=== PATIENT | male | born 1945 | race Caucasian/White ===

== ENCOUNTER 2018-11-08 10:13 | Emergency (ER) | payer OTHER ==
[2018-11-08 10:33] VITALS: O2SAT 97
[2018-11-08] MEDS ORDERED: Sodium Chloride 0.9% 1000 ML 1,000 ML IV STA ×2 (10:47→11:17)
[2018-11-08] MEDS ORDERED: SUBLIMAZE 100 MCG/2 ML IV ONE (10:47)
[2018-11-08] MEDS ORDERED: Zofran 4 MG/2 ML VIAL IV ONE (10:47)
[2018-11-08] MEDS ORDERED: Zofran 4 MG/2 ML VIAL ONE (10:52)
[2018-11-08 10:53] LABS: Hematocrit 55.1 % (42-50); Hemoglobin 19.1 gm/dl (12.5-18.0); Mean Cell Volume 94.3 fl (78-100); Mean Corpuscular Hemoglobin 32.7 pg (26-32); Mean Corpuscular Hgb Concent. 34.7 g/dl (32-36); Mean Platelet Volume 9.2 fl (6-9.5); Platelet Count 233 K/mm3 (150-450); Red Blood Count 5.84 M/mm3 (4.1-5.6); Red Cell Distribution Width 13.3 % (11.5-14.0); White Blood Count 16.7 K/mm3 (4.0-10.5)
[2018-11-08] MEDS ORDERED: SUBLIMAZE 100 MCG/2 ML ONE (10:53)
[2018-11-08] MEDS ORDERED: Sodium Chloride 0.9% 1000 ML 1,000 ML ONE ×2 (10:53→11:50)
--- NOTE | 2018-11-08 10:54 | ERPHSYRPT ---
- History of Present Illness Time Seen by Provider: 11/08/18 10:43 Historian: patient Exam Limitations: no limitations Patient Subjective Stated Complaint: Patient complains of stomach ache and leg cramping for 2 days Triage Nursing Assessment: Patient ambulated into ER with complains of nausia/ vomiting and leg cramping. patinet alert and orientated, carine states he has lost 10 lbs this week Physician History: [id number] white male with history of lumbar fusion, sleep apnea, high blood pressure, degenerative disc disease Patient arrives with complaint of diffuse abdominal pain worse across the abdomen the periumbilical region associated with vomiting and diarrhea symptoms for 2 days. Patient denies any fevers. Past medical history includes back pain,, high blood pressure, sleep apnea, gallbladder, degenerative disc disease, osteoarthritis Past surgical history includes cholecystectomy, neck surgery back surgery shoulder surgery, foot surgery Timing/Duration: day(s) (2 days) Activities at Onset: none Quality: cramping Abdominal Pain Onset Location: generalized abdomen (worse at the level of periumbilical region across the entire abdomen), other Severity of Pain-Max: moderate Severity of Pain-Current: moderate Modifying Factors: Improves With: nothing Associated Symptoms: back, diarrhea, nausea, vomiting, other (leg cramps and pain), No chest pain, No diaphoresis, No fever/chills, No fatigue, No headache, No heartburn, No loss of appetite, No neck pain, No rash, No shortness of breath , No syncope, No testicular pain Previous symptoms: no prior history Allergies/Adverse Reactions: morphine Allergy (Verified 05/11/16 14:25) ketorolac [From Toradol] Adverse Reaction (Intermediate, Verified 11/08/18 10:34 ) unable to urinate Home Medications: Diclofenac Sodium/Misoprostol [Arthrotec 75 mg-200 Mcg Tab] 1 each PO BID [History] Gabapentin [Neurontin] 600 mg PO BID 05/11/16 [History] Omeprazole 20 MG [Prilosec 20 mg] 20 mg PO BID 05/11/16 [History] Oxycodone HCl/Acetaminophen [Percocet 5-325 mg Tablet] 1 each PO Q4-6HPRN PRN [History] Simvastatin 40 mg [Zocor 40 mg] 40 mg PO DAILY 05/11/16 [History] Lisinopril/Hydrochlorothiazide [Lisinopril-Hctz 20-12.5 mg Tab] 1 tab PO BID 06/27 [History] Hx Tetanus, Diphtheria Vaccination/Date Given: Yes Hx Influenza Vaccination/Date Given: Yes Hx Pneumococcal Vaccination/Date Given: Yes Immunizations Up to Date: Yes - Review of Systems Constitutional: No Fever, No Chills Eyes: No Symptoms Ears, Nose, & Throat: No Symptoms Respiratory: No Cough, No Dyspnea Cardiac: No Chest Pain, No Edema, No Syncope Abdominal/Gastrointestinal: Abdominal Pain, Nausea, Vomiting, Diarrhea, No Constipation, No Hematemesis, No Hematochezia, No Melena, No Dysphagia, No Appetite Changes Genitourinary Symptoms: No Dysuria Musculoskeletal: Back Pain, Other (leg cramps and pain), No Neck Pain, No Deformity, No Fall, No Injury, No Joint Redness, No Joint Pain, No Joint Swelling, No Myalgias Skin: No Rash Neurological: No Dizziness, No Focal Weakness, No Sensory Changes Psychological: No Symptoms Endocrine: No Symptoms All Other Systems: Reviewed and Negative - Past Medical History Neurological History: No Pertinent History ENT History: No Pertinent History Cardiac History: Hypertension Respiratory History: Sleep Apnea Endocrine Medical History: No Pertinent History Musculoskeletal History: Degenerative Disk Disease, Osteoarthritis GI Medical History: Gallbladder Disease History: No Pertinent History Psycho-Social History: No Pertinent History Male Reproductive Disorders: No Pertinent History Other Medical History: PT. HAD L4-S1 FUSION ~ 2011 - Past Surgical History Past Surgical History: Yes Neuro Surgical History: No Pertinent History Cardiac: No Pertinent History Respiratory: No Pertinent History Gastrointestinal: Hernia Repair Genitourinary: No Pertinent History Musculoskeletal: Orthopedic Surgery Male Surgical History: No Pertinent History Other Surgical History: gallbladder removed, one neck surgery, three back and three shoulder and one foot surgery - Social History Smoking Status: Former smoker Exposure to second hand smoke: No Drug Use: none Patient Lives Alone: No - Nursing Vital Signs Nursing Vital Signs: Initial Vital Signs Temperature 98.2 F 11/08/18 10:18 Pulse Rate 91 H 11/08/18 10:18 Respiratory Rate 20 11/08/18 10:18 Blood Pressure 133/82 11/08/18 10:18 O2 Sat by Pulse Oximetry 97 11/08/18 10:18 Pain Scale Pain Intensity 10 - Physical Exam General Appearance: mild distress, alert Eye Exam: PERRL/EOMI, eyes nml inspection Ears, Nose, Throat Exam: normal ENT inspection, pharynx normal, moist mucous membranes Neck Exam: normal inspection, non-tender, supple, full range of motion Respiratory Exam: normal breath sounds, lungs clear, No respiratory distress Cardiovascular Exam: regular rate/rhythm, normal heart sounds, capillary refill <2 sec Gastrointestinal/Abdomen Exam: soft, normal bowel sounds, tenderness (diffuse tenderness worse across the entire abdomen at level of umbilicus) Back Exam: normal inspection, normal range of motion, No CVA tenderness, No vertebral tenderness Extremity Exam: normal inspection, normal range of motion, pelvis stable Neurologic Exam: alert, oriented x 3, cooperative, rewriter II-XII nml as tested, normal mood/affect, nml cerebellar function, sensation nml, No motor deficits Skin Exam: normal color, warm, dry SpO2 Interpretation: normal (97%) SpO2: 97 - Course Nursing assessment & vital signs reviewed: Yes - CT Exams Abdomen/Pelvis CT Interpretation: Discussed w/radiologist (CT abdomen and pelvis: Impression 1. New fluid distended small and large bowel loops with fluid leveling, ileus versus enterocolitis. 2. Stable fatty liver, nonobstructing bilateral renal microcalculi, left renal cyst, and lumbar postsurgical changes.) Ordered Tests: Active Orders 24 hr Category Date Time Status IV Insertion STAT Care 11/08/18 10:47 Active ABDOMEN AND PELVIS W/0 CONTRAS [CT] Stat Exams 11/08/18 11:16 Completed AMYLASE Stat Lab 11/08/18 10:30 Completed CBC W DIFF Stat Lab 11/08/18 10:30 Completed CMP Stat Lab 11/08/18 10:30 Completed CULTURE,URINE Stat Lab 11/08/18 12:04 Received LIPASE Stat Lab 11/08/18 10:30 Completed Manual Differential NC Stat Lab 11/08/18 10:30 Completed UA W/RFX UR CULTURE Stat Lab 11/08/18 12:04 Completed Medication Summary Discontinued Medications Generic Name Dose Route Start Last Admin Trade Name Freq PRN Reason Stop Dose Admin Fentanyl Citrate 75 mcg 11/08/18 10:47 11/08/18 10:58 Sublimaze 100 Mcg/2 Ml IV 11/08/18 10:48 75 mcg STAT ONE Administration Fentanyl Citrate Confirm 11/08/18 10:53 Sublimaze 100 Mcg/2 Ml Administered 11/08/18 10:54 Dose 100 mcg .ROUTE .STK-MED ONE Sodium Chloride 1,000 mls @ 999 mls/hr 11/08/18 10:47 11/08/18 12:41 Sodium Chloride 0.9% 1000 Ml IV 11/08/18 11:47 Infused .Q1H1M STA Infusion Sodium Chloride Confirm 11/08/18 10:53 Sodium Chloride 0.9% 1000 Ml Administered 11/08/18 10:54 Dose 1,000 mls @ ud .ROUTE .STK-MED ONE Sodium Chloride 1,000 mls @ 999 mls/hr 11/08/18 11:17 11/08/18 12:25 Sodium Chloride 0.9% 1000 Ml IV 11/08/18 12:17 999 mls/hr .Q1H1M STA Administration Sodium Chloride Confirm 11/08/18 11:50 Sodium Chloride 0.9% 1000 Ml Administered 11/08/18 11:51 Dose 1,000 mls @ ud .ROUTE .STK-MED ONE Ondansetron HCl 4 mg 11/08/18 10:47 11/08/18 10:57 Zofran 4 Mg/2 Ml Vial IV 11/08/18 10:48 4 mg STAT ONE Administration Ondansetron HCl Confirm 11/08/18 10:52 Zofran 4 Mg/2 Ml Vial Administered 11/08/18 10:53 Dose 4 mg .ROUTE .STK-MED ONE Lab/Rad Data: Laboratory Result Diagrams 11/08/18 10:30 11/08/18 10:30 Laboratory Results 11/08/18 11/08/18 11/08/18 Range/Units 12:04 10:30 10:30 WBC 16.7 H (4.0-10.5) K/mm3 RBC 5.84 H (4.1-5.6) M/mm3 Hgb 19.1 H (12.5-18.0) gm/dl Hct 55.1 H (42-50) % MCV 94.3 (78-100) fl MCH 32.7 H (26-32) pg MCHC 34.7 (32-36) g/dl RDW 13.3 (11.5-14.0) % Plt Count 233 (150-450) K/mm3 MPV 9.2 (6-9.5) fl Absolute Neutrophils 14.54 (1.4-6.9) Segmented Neutrophils 87 H (36.-66.) % Lymphocytes (Manual) 4 L (24-44) % Monocytes (Manual) 9 (0.0-12.0) % Platelet Estimate NORMAL (NORMAL) RBC Morphology NORMAL Sodium 140 (137-145) mmol/L Potassium 3.5 (3.5-5.1) mmol/L Chloride 96 L (98-107) mmol/L Carbon Dioxide 24 (22-30) mmol/L Anion Gap 22.9 H (5-15) MEQ/L BUN 32 H (9-20) mg/dL Creatinine 1.40 H (0.66-1.25) mg/dL Estimated GFR 52.9 ML/MIN Glucose 166 H (74-106) mg/dL Calcium 10.1 (8.4-10.2) mg/dL Total Bilirubin 0.60 (0.2-1.3) mg/dL AST 37 (17-59) U/L ALT 44 (0-50) U/L Alkaline Phosphatase 51 (38-126) U/L Serum Total Protein 9.4 H (6.3-8.2) g/dL Albumin 5.3 H (3.5-5.0) g/dL Amylase 73 (30-110) U/L Lipase 33 (23-300) U/L Urine Color YELLOW (YELLOW) Urine Appearance SLIGHTLY CLOUDY (CLEAR) Urine pH 5.0 (5-6) Ur Specific [place] 1.025 (1.005-1.025) Urine Protein 100 (Negative) Urine Ketones TRACE (NEGATIVE) Urine Blood NEGATIVE (0-5) Jabari/ul Urine Nitrite NEGATIVE (NEGATIVE) Urine Bilirubin NEGATIVE (NEGATIVE) Urine Urobilinogen NEGATIVE (0-1) mg/dL Ur Leukocyte Esterase NEGATIVE (NEGATIVE) Urine WBC (Auto) 11-15 (0-5) /HPF Urine RBC (Auto) 3-5 (0-2) /HPF U Hyaline Cast (Auto) 11-25 (0-2) /LPF U Epithel Cells (Auto) FEW (FEW) /HPF Urine Bacteria (Auto) FEW (NEGATIVE) /HPF Urine Mucus (Auto) SLIGHT (NEGATIVE) /HPF Urine Culture Reflexed YES (NO) Urine Glucose NEGATIVE (NEGATIVE) mg/dL - Progress Progress: improved Progress Note: 11/08/18 13:34 Patient feeling better with 2 L of normal saline. CT of the abdomen impression 1. The fluid distended large and small bowel loops with fluid leveling ileus versus enterocolitis 2. Stable fatty liver, nonobstructing bilateral renal might wrote-calculi, left renal cyst, and lumbar postsurgical changes. Patient's white count 16.7 hemoglobin 19.1 hematocrit 55.1 patient's chemistry sodium 140 potassium 3.5 chloride 96 BUN 32 creatinine 1.40 glucose 166 anion gap was elevated at 22.9 Patient does have a UTI on urinalysis. I have offered to discuss the patient's case with his family doctor for possible observation he refuses to do this. Will go ahead and release patient. Will write for Phenergan for nausea. Bactrim DS one orally twice a day. And write for a small amount of Lomotil . - Departure Departure Disposition: Home Clinical Impression: Dehydration Vomiting Qualifiers: Vomiting type: unspecified Vomiting Intractability: non-intractable Nausea presence: without nausea Qualified Code(s): R11.11 - Vomiting without nausea Diarrhea Qualifiers: Diarrhea type: unspecified type Qualified Code(s): R19.7 - Diarrhea, unspecified UTI (urinary tract infection) Qualifiers: Urinary tract infection type: site unspecified Hematuria presence: without hematuria Qualified Code(s): N39.0 - Urinary tract infection, site not specified Condition: Fair Critical Care Time: No Referrals: VENKATA SANCHEZ MD [Primary Care Provider] - Additional Instructions: Return home. Plenty of fluids, clear fluids only 24-48 hours if nausea vomiting or abdominal pain or diarrhea. Bactrim DS one orally twice a day for 10 days. Lomotil one orally 4 times a day as needed for loose stools. Phenergan 25 mg one orally every 4-6 hours as needed for nausea and vomiting Followup with your family DrSylvester if symptoms are worse no better in 24 hours or persist longer than 48-72 hours. Return for acute distress or for severe symptoms. Prescriptions: Promethazine HCl 25 mg [Phenergan 25 mg] 25 mg PO Q4-6HPRN PRN #12 tablet PRN Reason: nausea and vomiting Smz/Tmp Ds Tablet [Bactrim Ds Tablet] 1 tab PO BID #20 tablet
[2018-11-08 11:02] LABS: ALBUMIN 5.3 g/dL (3.5-5.0); ANION GAP 22.9 MEQ/L (5-15); BILIRUBIN,TOTAL 0.6 mg/dL (0.2-1.3); Calcium 10.1 mg/dL (8.4-10.2); Creatinine 1 1.4 mg/dL (0.66-1.25); Potassium 3.5 mmol/L (3.5-5.1); Total Protein 9.4 g/dL (6.3-8.2)
[2018-11-08 11:23] LABS: Neutrophils 87 % (36.-66.); Total Cells Counted 100
[2018-11-08 11:24] LABS: ABSOLUTE NEUTROPHILS 14.54 (1.4-6.9); Lymphocytes 4 % (24-44); Monocyte 9 % (0.0-12.0); Platelet Estimate NORMAL (NORMAL)
[2018-11-08 12:06] VITALS: BP 159/68; PULSE 78
--- NOTE | 2018-11-08 12:10 | XRAY ---
Indication: Abdomen pain, nausea, vomiting, diarrhea. Multiple contiguous axial images obtained through the abdomen and pelvis without contrast as ordered. Comparison: May 22, 2015. Lung bases are essentially clear. Heart is not enlarged. Noncontrasted stomach and bowel loops appear nonobstructed. Normal appendix. Small and large bowel loops now are mildly fluid distended throughout with fluid leveling, ileus versus enterocolitis. Again previous cholecystectomy. No free fluid/air. Stable fatty liver, nonobstructing bilateral renal micro-calculi, left renal cysts, and a few calcified splenic granulomas. Remaining liver, pancreas, spleen, adrenal glands, kidneys, ureters, and bladder appear unremarkable for noncontrast exam. Stable moderate scattered aortoiliac calcifications without AAA. Osseous structures again demonstrates mild degenerative changes throughout the thoracolumbar spine, L4-S1 fusion surgery with intact posterior spinal hardware/intervertebral spacers, and L5-S1 hemilaminectomy. Impression: 1. New fluid distended small and large bowel loops with fluid leveling, ileus versus enterocolitis. 2. Stable fatty liver, nonobstructing bilateral renal micro-calculi, left renal cysts, and lumbar postsurgical changes. CT DI 23.48
[2018-11-08 12:32] LABS: Appearance SLIGHTLY CLOUDY (CLEAR); Bacteria FEW /HPF (NEGATIVE); Bilirubin NEGATIVE (NEGATIVE); Blood NEGATIVE Ery/ul (0-5); Epithelial Cells FEW /HPF (FEW); Glucose NEGATIVE (NEGATIVE); Ketones TRACE (NEGATIVE); Leukocyte Esterase NEGATIVE (NEGATIVE); Mucus SLIGHT /HPF (NEGATIVE); Nitrite NEGATIVE (NEGATIVE); Protein,Urine Dip 100 (Negative); Specific Gravity 1.025 (1.005-1.025); Urobilinogen NEGATIVE mg/dL (0-1)
== END 2018-11-08 13:57 | disposition home or self-care (01) ==
LOC: ED 10:13
DX: E86.0 Dehydration (principal); R11.11 Vomiting without nausea; R19.7 Diarrhea, unspecified; N39.0 Urinary tract infection, site not specified; R25.2 Cramp and spasm; I10 Essential (primary) hypertension; G47.30 Sleep apnea, unspecified; M19.90 Unspecified osteoarthritis, unspecified site; Z79.899 Other long term (current) drug therapy
CPT/HCPCS: 36000; 36415; 74176; 80053; 81001; 82150; 83690; 85025; 87086; 96360; 96361; 96374; 96375; 99284; J2405; J3010

== ENCOUNTER 2018-11-10 09:48 | Observation (INO) | payer OTHER ==
[2018-11-10] MEDS ORDERED: Zofran 4 MG/2 ML VIAL IV PRN (10:46)
[2018-11-10] MEDS ORDERED: Phenergan 25 MG INJ IV PRN (10:46)
[2018-11-10] MEDS ORDERED: Sodium Chloride 0.9% 1000 ML 1,000 ML IV STA (10:46)
[2018-11-10] MEDS: SUBLIMAZE 100 MCG/2 ML IV PRN ×2 (11:01→23:50)
--- NOTE | 2018-11-10 11:04 | PCM.HP ---
History of Present Illness - Chief Complaint Chief Complaint: Diarrhea,Abd Pain History of Present Illness: is a 73 year old male pt of Dr. Ayala with osteoarthritis, chronic back pain (s/p multiple surgeries), hx cholecystectomy and knee surgery, and HTN who was directly admitted today by me for diarrhea and abdominal pain. He has been feeling ill for the past 5d, watery diarrhea, nausea, some chills, decreased po intake and decreased urination. He went to the ER two days ago, was found to have elevated WBC count with left shift, some renal insufficiency, and CT abd/pelvis with ileus vs enteritis. He received 2 bags of IV fluids but did not want to stay to be admitted so was discharged to home on po bactrim and lomotil. He did not tolerate the bactrim well and the lomotil gave him so urinary retention so he stopped it. Continued to have watery diarrhea and nausea over the past 2d. He weighed 224lb 5d ago but is down to 207 lb today. His last episode of vomiting was 3d ago and his last episode of diarrhea was 30min ago. He is complaining of lower abd pain, 7/10 currently, but was "20"/10 early this morning - improved with heating pad and po tylenol. Denies fever. - Review of Systems Constitutional: Chills, Weight Loss, No Fever Abdominal/Gastrointestinal: Abdominal Pain, Nausea, Vomiting, Diarrhea, Appetite Changes Genitourinary Symptoms: Urinary Retention Musculoskeletal: Back Pain (chronic), Joint Pain (chronic) Psychological: No Anxiety, No Depression, No Suicidal Ideations All Other Systems: Reviewed and Negative Medications & Allergies Home Medications: Home Medication List Diclofenac Sodium/Misoprostol [Arthrotec 75 mg-200 Mcg Tab] 1 each PO BID [History Confirmed 05/12/16] Gabapentin [Neurontin] 600 mg PO BID 05/11/16 [History Confirmed 05/12/16] Omeprazole 20 MG [Prilosec 20 mg] 20 mg PO BID 05/11/16 [History Confirmed 05/12] Oxycodone HCl/Acetaminophen [Percocet 5-325 mg Tablet] 1 each PO Q4-6HPRN PRN [History Confirmed 05/12/16] Simvastatin 40 mg [Zocor 40 mg] 40 mg PO DAILY 05/11/16 [History Confirmed 05/12] Lisinopril/Hydrochlorothiazide [Lisinopril-Hctz 20-12.5 mg Tab] 1 tab PO BID 06/27 [History Confirmed 05/24/16] Promethazine HCl 25 mg [Phenergan 25 mg] 25 mg PO Q4-6HPRN PRN #12 tablet 11/08/18 [Rx] Smz/Tmp Ds Tablet [Bactrim Ds Tablet] 1 tab PO BID #20 tablet 11/08/18 [Rx ] Allergies/Adverse Reactions: Allergies Allergy/AdvReac Type Severity Reaction Status Date / Time morphine Allergy Verified 05/11/16 14:25 ketorolac [From Toradol] AdvReac Intermediate unable to Verified 11/08/18 10:34 urinate - Past Medical History Neurological History: No Pertinent History ENT History: No Pertinent History Cardiac History: Hypertension Respiratory History: Sleep Apnea Endocrine Medical History: No Pertinent History Musculoskelatal History: Degenerative Disk Disease, Osteoarthritis GI Medical History: Gallbladder Disease History: No Pertinent History Pyscho-Social History: No Pertinent History Male Reproductive Disorders: No Pertinent History Comment: PT. HAD L4-S1 FUSION ~ 2011 - Past Surgical History Past Surgical History: Yes Neuro Surgical History: No Pertinent History Cardiac History: No Pertinent History Respiratory Surgery: No Pertinent History GI Surgical History: Hernia Repair Genitourinary Surgical Hx: No Pertinent History Musculskeletal Surgical Hx: Orthopedic Surgery Male Surgical History: No Pertinent History Other Surgical History: gallbladder removed, one neck surgery, three back and three shoulder and one foot surgery - Social History Smoking Status: Never smoker Exposure to second hand smoke: No Alcohol: Occasionally Drug Use: none - Physical Exam Vital Signs: Vital Signs - 24 hr Temp Pulse Resp BP Pulse Ox 11/10/18 10:53 97.7 F 93 H 20 127/75 99 11/10/18 10:22 97.7 F 93 H 20 127/75 99 General Appearance: no apparent distress, alert Neurologic Exam: oriented x 3, cooperative Eye Exam: eyes nml inspection Ears, Nose, Throat Exam: moist mucous membranes Respiratory Exam: normal breath sounds, lungs clear, No crackles/rales, No rhonchi, No wheezing Cardiovascular Exam: regular rate/rhythm, normal heart sounds, No murmur Gastrointestinal/Abdomen Exam: soft, tenderness (generalized - worse in lower abd/suprapubic), No normal bowel sounds (hyperactive, high pitched), No distention, No mass, No guarding, No rebound Extremity Exam: normal inspection, No pedal edema, No swelling Skin Exam: normal color, warm, dry, No rash Results - Radiology Impressions Radiology Exams & Impressions: Radiology Procedures Category Date Time Status KUB Routine Exams 11/10/18 Ordered Assessment/Plan (1) Abdominal pain Current Visit: Yes Status: Acute Qualifiers: Abdominal location: generalized Qualified Code(s): R10.84 - Generalized abdominal pain Assessment & Plan: Labs are pending. XR abd pending. Previous CT 2d ago with ileus vs enteritis. He is almost certainly dehydrated. IV fluids going now. STarting him on IV flagyl 500mg q6h and IV levaquin 500mg daily. phenergana nd zofran prn. Try fentanyl for pain. Code(s): R10.9 - UNSPECIFIED ABDOMINAL PAIN (2) Diarrhea Current Visit: No Status: Acute Qualifiers: Diarrhea type: unspecified type Qualified Code(s): R19.7 - Diarrhea, unspecified Assessment & Plan: GI pathogen panel to be collected when he has another episode. Code(s): R19.7 - DIARRHEA, UNSPECIFIED
[2018-11-10 11:26] LABS: Hematocrit 51.1 % (42-50); Hemoglobin 18.3 gm/dl (12.5-18.0); Mean Cell Volume 90.3 fl (78-100); Mean Corpuscular Hemoglobin 32.3 pg (26-32); Mean Corpuscular Hgb Concent. 35.8 g/dl (32-36); Mean Platelet Volume 9.5 fl (6-9.5); Platelet Count 261 K/mm3 (150-450); Red Blood Count 5.66 M/mm3 (4.1-5.6); Red Cell Distribution Width 13.6 % (11.5-14.0); White Blood Count 13.4 K/mm3 (4.0-10.5)
[2018-11-10] MEDS: Levofloxacin 500MG/100ML D5W 500 MG/100 ML BAG IV SCH (11:31)
[2018-11-10] MEDS: FLAGYL 500 MG IVPB 500 MG/100 ML BAG IV SCH ×3 (11:31→23:48)
[2018-11-10 11:36] LABS: ALBUMIN 4.7 g/dL (3.5-5.0); ANION GAP 19.7 MEQ/L (5-15); BILIRUBIN,TOTAL 0.6 mg/dL (0.2-1.3); Calcium 9.7 mg/dL (8.4-10.2); Creatinine 1 1.62 mg/dL (0.66-1.25); Total Protein 8.2 g/dL (6.3-8.2)
[2018-11-10 12:04] LABS: Potassium 2.5 mmol/L (3.5-5.1)
[2018-11-10] MEDS: Lactated Ringers 1,000 ML IV SCH ×2 (12:37→17:53)
[2018-11-10] MEDS: POTASSIUM CHLORIDE 20 mEq IN WATER 100ML 20 MEQ/100 ML BAG IV SCH ×2 (12:38→14:27)
[2018-11-10 13:01] LABS: ATYPICAL LYMPHS 4 %; Lymphocytes 10 % (24-44); Monocyte 6 % (0.0-12.0); Neutrophils 80 % (36.-66.); Platelet Estimate NORMAL (NORMAL); Total Cells Counted 100
[2018-11-10 13:17] LABS: Appearance CLEAR (CLEAR); Bacteria FEW /HPF (NEGATIVE); Bilirubin NEGATIVE (NEGATIVE); Blood NEGATIVE Ery/ul (0-5); Glucose NEGATIVE (NEGATIVE); Ketones TRACE (NEGATIVE); Leukocyte Esterase NEGATIVE (NEGATIVE); Mucus SLIGHT /HPF (NEGATIVE); Nitrite NEGATIVE (NEGATIVE); Protein,Urine Dip 30 (Negative); Specific Gravity 1.017 (1.005-1.025); Urobilinogen NEGATIVE mg/dL (0-1)
[2018-11-10 14:42] LABS: Adenovirus F 40/41 NEGATIVE (NEGATIVE); Astrovirus NEGATIVE (NEGATIVE); C. Difficile Organism NEGATIVE (NEGATIVE); Campylobacter NEGATIVE (NEGATIVE); Cyclospora cayentanensis NEGATIVE (NEGATIVE); Entamoeaba histolytica NEGATIVE (NEGATIVE); Enteroaggregative E.coli NEGATIVE (NEGATIVE); Giardia lamblia NEGATIVE (NEGATIVE); Salmonella NEGATIVE (NEGATIVE); Sapovirus NEGATIVE (NEGATIVE); Shiga-like toxin prod.E.coli NEGATIVE (NEGATIVE); Vibrio NEGATIVE (NEGATIVE)
[2018-11-10 14:44] LABS: Rotavirus A POSITIVE (NEGATIVE)
[2018-11-10 19:37] LABS: MAGNESIUM 1.8 mg/dL (1.6-2.3); Potassium 3.1 mmol/L (3.5-5.1)
[2018-11-10] MEDS ORDERED: POTASSIUM CHLORIDE 20 mEq IN WATER 100ML 20 MEQ/100 ML BAG IV ONE (20:38)
[2018-11-10] MEDS ORDERED: hydroDIURIL 25 MG ONE (21:06)
[2018-11-10] MEDS ORDERED: Zestril 20 MG ONE (21:07)
[2018-11-10] MEDS: NEURONTIN 300 MG PO SCH (21:13)
[2018-11-10] MEDS: Zestril 20 MG PO SCH (21:14)
[2018-11-10] MEDS: hydroDIURIL 25 MG PO SCH (21:14)
--- NOTE | 2018-11-10 21:15 | XRAY ---
Indication: Abdomen pain, nausea, and diarrhea. Multiple contiguous axial images obtained through the abdomen and pelvis without contrast as ordered. Comparison: November 08, 2018. Lung bases remain clear. Heart is not enlarged. Noncontrasted stomach unremarkable. Again fluid distended small and large bowel loops throughout but less than before again with fluid leveling, ileus versus enterocolitis. No free fluid/air. Stable fatty liver, cholecystectomy, nonobstructing bilateral renal micro-calculi, left renal cyst, and enlarged prostate gland. Remaining liver, pancreas, spleen, adrenal glands, kidneys, ureters, and bladder unremarkable for noncontrast exam. Osseous structures again demonstrates degenerative changes throughout the spine, L4-S1 fusion surgery, and L5-S1 laminectomy. Impression: 1. Again fluid distended small and large bowel loops with fluid leveling, ileus versus enterocolitis. 2. Stable fatty liver, nonobstructing renal micro-calculi, left renal cyst, enlarged prostate gland, and lumbar postsurgical changes. Comment: Preliminary interpretation was made by [facility]. No critical discrepancy. CTDI 23.28
--- NOTE | 2018-11-10 21:18 | XRAY ---
Indication: Abdomen pain, nausea, and diarrhea. Comparison: None KUB demonstrates air distended small/large bowel loops without focal distention/obstruction. Previous cholecystectomy and L4-S1 fusion surgery. No free air. Solid organs unremarkable. Impression: Air distended small/large bowel loops further detailed on same-day CT abdomen/pelvis exam. Comment: Preliminary interpretation was made by [facility]. No critical discrepancy.
[2018-11-10] MEDS ORDERED: NON-FORMULARY ITEM (Lisinopril/Hydrochlorothiazide [Lisinopril-Hctz 20-12.5 Mg Tab] 1 TAB) PO SCH (22:00)
[2018-11-11] MEDS: Lactated Ringers 1,000 ML IV SCH (02:42)
[2018-11-11] MEDS: FLAGYL 500 MG IVPB 500 MG/100 ML BAG IV SCH ×2 (06:03→12:10)
[2018-11-11 06:33] LABS: Hematocrit 41.8 % (42-50); Hemoglobin 14.9 gm/dl (12.5-18.0); Mean Cell Volume 90.3 fl (78-100); Mean Corpuscular Hemoglobin 32.2 pg (26-32); Mean Corpuscular Hgb Concent. 35.6 g/dl (32-36); Platelet Count 202 K/mm3 (150-450); Red Blood Count 4.63 M/mm3 (4.1-5.6); Red Cell Distribution Width 13.4 % (11.5-14.0); White Blood Count 9.7 K/mm3 (4.0-10.5)
[2018-11-11 06:45] LABS: ALBUMIN 3.4 g/dL (3.5-5.0); ALKALINE PHOSPHATASE 32 U/L (38-126); ANION GAP 15.6 MEQ/L (5-15); BLOOD UREA NITROGEN 23 mg/dL (9-20); CHLORIDE 103 mmol/L (98-107); Calcium 8.8 mg/dL (8.4-10.2); Carbon Dioxide 23 mmol/L (22-30); Creatinine 1 0.96 mg/dL (0.66-1.25); Glucose 98 mg/dL (74-106); SGOT/AST 28 U/L (17-59); SGPT/ALT 33 U/L (0-50); SODIUM 139 mmol/L (137-145); Total Protein 6.1 g/dL (6.3-8.2)
[2018-11-11 06:49] LABS: Potassium 2.8 mmol/L (3.5-5.1)
[2018-11-11 07:25] VITALS: O2SAT 95
[2018-11-11] MEDS ORDERED: Sodium Chloride 0.9% W/ 20 mEq KCl/LITER 1,000 ML IV SCH (08:00)
[2018-11-11] MEDS: POTASSIUM CHLORIDE 20 mEq IN WATER 100ML 20 MEQ/100 ML BAG IV SCH ×2 (08:26→10:57)
[2018-11-11] MEDS: Zestril 20 MG PO SCH (08:33)
[2018-11-11] MEDS: hydroDIURIL 25 MG PO SCH (08:34)
[2018-11-11] MEDS: NEURONTIN 300 MG PO SCH (08:34)
[2018-11-11 10:16] LABS: BAND 1 % (0.0-2.0); Lymphocytes 18 % (24-44); Monocyte 5 % (0.0-12.0); Neutrophils 76 % (36.-66.); Platelet Estimate NORMAL (NORMAL); Total Cells Counted 100; Toxic Granulation 1+
[2018-11-11] MEDS: Levofloxacin 500MG/100ML D5W 500 MG/100 ML BAG IV SCH (11:13)
[2018-11-11 12:08] VITALS: BP 125/61; PULSE 72
--- NOTE | 2018-11-11 13:50 | PCM.DS ---
Discharge Summary Date of Admission: 11/10/18 10:11 Admitting Physician: VENKATA SANCHEZ Primary Care Provider: VENKATA SANCHEZ Allergies Allergies morphine Allergy (Verified 05/11/16 14:25) ketorolac [From Toradol] Adverse Reaction (Intermediate, Verified 11/08/18 10:34 ) unable to urinate Hospital Summary - Hospital Course Hospital Course: Pt is a 73 yo male pt of Dr. Sanchez with PMHx OA, chronic back pain with failed surgeries, and HTN who was directly admitted by me after 6d of diarrhea and abdominal pain. He did have some chills and vomiting at home as well. KUB with copious amt bowel gas but little gas in distal colon; CT abd/pelvis with no distinct blockage or mass; ileus v enteritis. On admission his eGFR was 44 and his WBC were elevated to 13.4. He was put on IV fluids. Found to have rotavirus. Potassium was low at 2.5. Today he is feeling much better; having some loose stool but not shantal, watery diarrhea. Tolerating po very well. His potassium was again low this morning at 2.8. Repleted with 1 bag of 20mEq potassium; will recheck, if necessary will give 25mEq K[place] liquid and recheck prior to discharge. Plan is to discharge to home on bland diet and antibiotics (flagyl and levaquin) today. He will f/u with Dr. Sanchez regarding possible need for f/u colonoscopy (note sent to Dr. Sanchez) and will see Dr. Sanchez in 1 week. - Vitals & Intake/Output Vital Signs: Vital Signs Temperature 97.8 F 11/11/18 12:00 Pulse Rate 72 11/11/18 12:00 Respiratory Rate 18 11/11/18 12:00 Blood Pressure 125/61 11/11/18 12:00 O2 Sat by Pulse Oximetry 95 11/11/18 12:00 Intake & Output: Intake & Output 11/09/18 11/10/18 11/11/18 11/12/18 11:59 11:59 11:59 11:59 Intake Total 1820 720 Output Total 375 Balance 1445 720 Weight 94.6 kg 97.6 kg - Lab Result Diagrams: 11/11/18 06:25 11/11/18 06:25 Lab Results-Last 24 Hrs: Lab Results-Last 24 Hours 11/10/18 11/10/18 11/11/18 Range/Units 12:45 19:25 01:37 WBC (4.0-10.5) K/mm3 RBC (4.1-5.6) M/mm3 Hgb (12.5-18.0) gm/dl Hct (42-50) % MCV (78-100) fl MCH (26-32) pg MCHC (32-36) g/dl RDW (11.5-14.0) % Plt Count (150-450) K/mm3 MPV (6-9.5) fl Segmented Neutrophils (36.-66.) % Band Neutrophils (0.0-2.0) % Lymphocytes (Manual) (24-44) % Monocytes (Manual) (0.0-12.0) % Toxic Granulation Platelet Estimate (NORMAL) RBC Morphology Sodium (137-145) mmol/L Potassium 3.1 L D 3.0 L (3.5-5.1) mmol/L Chloride (98-107) mmol/L Carbon Dioxide (22-30) mmol/L Anion Gap (5-15) MEQ/L BUN (9-20) mg/dL Creatinine (0.66-1.25) mg/dL Estimated GFR ML/MIN Glucose (74-106) mg/dL Calcium (8.4-10.2) mg/dL Magnesium 1.8 (1.6-2.3) mg/dL Total Bilirubin (0.2-1.3) mg/dL AST (17-59) U/L ALT (0-50) U/L Alkaline Phosphatase (38-126) U/L Serum Total Protein (6.3-8.2) g/dL Albumin (3.5-5.0) g/dL Stl C. cayetanensis PCR NEGATIVE (NEGATIVE) Stl Adenov F 40/41 PCR NEGATIVE (NEGATIVE) Stool Astrovirus (PCR) NEGATIVE (NEGATIVE) Stool Cryptosporidium PCR NEGATIVE (NEGATIVE) Stool EPEC (PCR) NEGATIVE (NEGATIVE) Stool EAEC (PCR) NEGATIVE (NEGATIVE) Stl E. histolytica PCR NEGATIVE (NEGATIVE) Stl P. shigelloides PCR NEGATIVE (NEGATIVE) Stool Sapovirus (PCR) NEGATIVE (NEGATIVE) St Y.enterocolitica PCR NEGATIVE (NEGATIVE) Stool Vibrio (PCR) NEGATIVE (NEGATIVE) Stl Vibrio cholerae PCR NEGATIVE (NEGATIVE) Stl Norovirus GI/GII PCR NEGATIVE (NEGATIVE) Campylobacter (PCR) NEGATIVE (NEGATIVE) C. difficile Toxin A&B NEGATIVE (NEGATIVE) Enterotoxigenic E. coli NEGATIVE (NEGATIVE) E.coli Shiga Toxins NEGATIVE (NEGATIVE) Giardia lamblia NEGATIVE (NEGATIVE) Rotavirus A (PCR) POSITIVE A (NEGATIVE) Salmonella (PCR) NEGATIVE (NEGATIVE) Shigella (PCR) NEGATIVE (NEGATIVE) 11/11/18 11/11/18 Range/Units 06:25 06:25 WBC 9.7 (4.0-10.5) K/mm3 RBC 4.63 (4.1-5.6) M/mm3 Hgb 14.9 (12.5-18.0) gm/dl Hct 41.8 L (42-50) % MCV 90.3 (78-100) fl MCH 32.2 H (26-32) pg MCHC 35.6 (32-36) g/dl RDW 13.4 (11.5-14.0) % Plt Count 202 (150-450) K/mm3 MPV 9.0 (6-9.5) fl Segmented Neutrophils 76 H (36.-66.) % Band Neutrophils 1 (0.0-2.0) % Lymphocytes (Manual) 18 L (24-44) % Monocytes (Manual) 5 (0.0-12.0) % Toxic Granulation 1+ Platelet Estimate NORMAL (NORMAL) RBC Morphology NORMAL Sodium 139 (137-145) mmol/L Potassium 2.8 L* (3.5-5.1) mmol/L Chloride 103 (98-107) mmol/L Carbon Dioxide 23 (22-30) mmol/L Anion Gap 15.6 H (5-15) MEQ/L BUN 23 H (9-20) mg/dL Creatinine 0.96 (0.66-1.25) mg/dL Estimated GFR > 60.0 ML/MIN Glucose 98 (74-106) mg/dL Calcium 8.8 (8.4-10.2) mg/dL Magnesium (1.6-2.3) mg/dL Total Bilirubin 0.80 (0.2-1.3) mg/dL AST 28 (17-59) U/L ALT 33 (0-50) U/L Alkaline Phosphatase 32 L (38-126) U/L Serum Total Protein 6.1 L (6.3-8.2) g/dL Albumin 3.4 L (3.5-5.0) g/dL Stl C. cayetanensis PCR (NEGATIVE) Stl Adenov F 40/41 PCR (NEGATIVE) Stool Astrovirus (PCR) (NEGATIVE) Stool Cryptosporidium PCR (NEGATIVE) Stool EPEC (PCR) (NEGATIVE) Stool EAEC (PCR) (NEGATIVE) Stl E. histolytica PCR (NEGATIVE) Stl P. shigelloides PCR (NEGATIVE) Stool Sapovirus (PCR) (NEGATIVE) St Y.enterocolitica PCR (NEGATIVE) Stool Vibrio (PCR) (NEGATIVE) Stl Vibrio cholerae PCR (NEGATIVE) Stl Norovirus GI/GII PCR (NEGATIVE) Campylobacter (PCR) (NEGATIVE) C. difficile Toxin A&B (NEGATIVE) Enterotoxigenic E. coli (NEGATIVE) E.coli Shiga Toxins (NEGATIVE) Giardia lamblia (NEGATIVE) Rotavirus A (PCR) (NEGATIVE) Salmonella (PCR) (NEGATIVE) Shigella (PCR) (NEGATIVE) - Radiology Exams Ordered Rad Exams-Entire Visit: Radiology Procedures Category Date Time Status ABDOMEN AND PELVIS W/0 CONTRAS [CT] Urgent Exams 11/10/18 14:01 Completed KUB Routine Exams 11/10/18 11:22 Completed Discharge Exam General Appearance: no apparent distress, alert Neurologic Exam: oriented x 3, cooperative Ears, Nose, Throat Exam: moist mucous membranes Respiratory Exam: normal breath sounds, lungs clear, No crackles/rales, No rhonchi, No wheezing Cardiovascular Exam: regular rate/rhythm, normal heart sounds, No murmur Gastrointestinal/Abdomen Exam: soft, normal bowel sounds, No tenderness, No distention, No mass, No guarding, No rebound Extremity Exam: normal inspection, No pedal edema, No swelling Skin Exam: normal color, warm, dry, No rash Final Diagnosis/Problem List - Final Discharge Diagnosis/Problem (1) Enteritis Current Visit: Yes Status: Acute Assessment & Plan: Will go ahead and discharge to home on po flagyl and levaquin. Code(s): K52.9 - NONINFECTIVE GASTROENTERITIS AND COLITIS, UNSPECIFIED (2) Rotaviral enteritis Current Visit: Yes Status: Acute Assessment & Plan: much better. handwashing. Code(s): A08.0 - ROTAVIRAL ENTERITIS (3) Hypokalemia Current Visit: Yes Status: Acute Assessment & Plan: recheck; replete po if needed. Code(s): E87.6 - HYPOKALEMIA (4) Renal insufficiency Current Visit: Yes Status: Resolved (5) Dehydration Current Visit: No Status: Resolved Code(s): E86.0 - DEHYDRATION - Discharge Disposition: Home, Self-Care Condition: Stable Prescriptions: New Metronidazole 500 mg [Flagyl 500 MG] 500 mg PO TID #24 tablet Levofloxacin [Levaquin] 500 mg PO DAILY #8 tablet Continue Gabapentin [Neurontin] 600 mg PO BID Omeprazole 20 MG [Prilosec 20 mg] 20 mg PO BID Diclofenac Sodium/Misoprostol [Arthrotec 75 mg-200 Mcg Tab] 1 each PO BID Simvastatin 40 mg [Zocor 40 mg] 40 mg PO HS Oxycodone HCl/Acetaminophen [Percocet 5-325 mg Tablet] 1 each PO Q4-6HPRN PRN PRN Reason: Pain Lisinopril/Hydrochlorothiazide [Lisinopril-Hctz 20-12.5 mg Tab] 1 tab PO BID Promethazine HCl 25 mg [Phenergan 25 mg] 25 mg PO Q4-6HPRN PRN #12 tablet PRN Reason: nausea and vomiting Discontinued Smz/Tmp Ds Tablet [Bactrim Ds Tablet] 1 tab PO BID #20 tablet Instructions: Rotavirus Infection Follow up with: VENKATA SANCHEZ MD [Primary Care Provider] - 1 Week Forms: Discharge Instructions
[2018-11-11] MEDS ORDERED: PERCOCET TABLET 5/325MG PO PRN (13:53)
[2018-11-11] MEDS ORDERED: K-LYTE 25 MEQ PO ONE (14:17)
== END 2018-11-11 14:47 | disposition home or self-care (01) ==
LOC: MED SURG 10:11
PROVIDERS: ADMIT Family Medicine; ATTEND Family Medicine
DX: K52.9 Noninfective gastroenteritis and colitis, unspecified (principal); A08.0 Rotaviral enteritis; E87.6 Hypokalemia; N28.9 Disorder of kidney and ureter, unspecified; E86.0 Dehydration; I10 Essential (primary) hypertension; M19.90 Unspecified osteoarthritis, unspecified site; R10.9 Unspecified abdominal pain; Z79.899 Other long term (current) drug therapy
CPT/HCPCS: 36415; 74018; 74176; 80053; 81001; 82150; 83690; 83735; 84132; 85025; 87507; 93268; G0378; J1956; J2550; J3010; J3480; A9270-GY

== ENCOUNTER 2019-08-07 05:54 | Day surgery (SDC) | payer OTHER ==
[2019-08-07] MEDS ORDERED: Lactated Ringers 1,000 ML IV SCH (06:00)
[2019-08-07] MEDS ORDERED: DIPRIVAN 200 MG/20 ML IV ONE ×2 (08:25→08:43)
--- NOTE | 2019-08-07 09:26 | OP ---
SURGERY DATE/TIME: 08/07/2019824 PREOPERATIVE DIAGNOSIS: Screening colonoscopy. POSTOPERATIVE DIAGNOSIS: Normal colon. PROCEDURE: Colonoscopy. SURGEON: Galindo Ayala M.D. ANESTHESIA: MAC by Riki Esparza CRNA. ESTIMATED BLOOD LOSS: None. SPECIMENS: None. DESCRIPTION OF PROCEDURE: After informed written consent was obtained, the patient was taken to the endoscopy suite. He underwent monitored anesthesia and a digital rectal exam showed normal sphincter tone and no internal lesions. The scope was inserted into the rectum and sequentially the entire colonic mucosa was traversed. The level of cecum was reached and verified with direct visualization of ileocecal valve. Upon withdrawal careful mucosal inspection revealed no gross abnormality, prep was noted to be good. Prior to withdrawal retroflexion was performed and showed no internal lesions. The scope was removed and the patient was transferred to the recovery room in good condition.
[2019-08-07 09:29] VITALS: O2SAT 96
[2019-08-07 09:35] VITALS: BP 158/84; PULSE 61
== END 2019-08-07 09:44 | disposition home or self-care (01) ==
LOC: SDC 05:54
PROVIDERS: ATTEND Family Medicine
DX: Z12.11 Encounter for screening for malignant neoplasm of colon (principal); I10 Essential (primary) hypertension; E78.5 Hyperlipidemia, unspecified; Z79.899 Other long term (current) drug therapy
CPT/HCPCS: 99100; J2704

== ENCOUNTER 2020-05-17 10:10 | Inpatient (IN) | payer OTHER, MEDICARE ==
[2020-05-17] MEDS ORDERED: FEVERALL 650 MG PR ONE (10:51)
[2020-05-17] MEDS ORDERED: VENTOLIN COMMON CANISTER IH ONE (10:51)
--- NOTE | 2020-05-17 10:54 | ERPHSYRPT ---
- History of Present Illness Time Seen by Provider: 05/17/20 10:40 Source: patient, family Exam Limitations: no limitations Patient Subjective Stated Complaint: shortness of breath upon walking, cough, low grade fever Triage Nursing Assessment: Pt brought to the ER by his , walked to room with no complications, hypertensive, lungs clear, reports sputum only some times, denies pain, skin n/w/d, pulses normal, doesn't appear to be in any distress Physician History: 75 years old male presented in the ER with chief complaint of 9-day history of cough congestion with progressive worsening for the last couple of days. Cough is wet to dry causing shortness of breath especially with activity. This morning he was having some difficulty breathing and his oxygen dropped with activity to 86% on room air. He also have a subjective feeling of fever and chills. is tested positive for COVID-19. Denies any chest pain but has generalized soreness. No abdominal pain nausea or vomiting. Timing/Duration: day(s) (9), gradual onset, worse Cough Quality/Degree: moderate, dry cough, productive cough Possible Cause: no prior episodes Modifying Factors: Improves With: coughing, exertion Associated Symptoms: fever, chills, chest pain/soreness, cough, headache, muscle aches, nasal congestion, shortness of breath, sore throat Allergies/Adverse Reactions: ketorolac [From Toradol] Adverse Reaction (Intermediate, Verified 05/17/20 10:24) unable to urinate morphine Adverse Reaction (Verified 05/17/20 10:24) Headache Home Medications: Gabapentin [Neurontin] 600 mg PO BID 05/11/16 [History] Omeprazole 20 MG [Prilosec 20 mg] 20 mg PO BID 05/11/16 [History] Simvastatin 40 mg [Zocor 40 mg] 40 mg PO HS 05/11/16 [History] Lisinopril/Hydrochlorothiazide [Lisinopril-Hctz 20-12.5 mg Tab] 1 tab PO BID 05/12/16 [History] Ascorbic Acid [Vitamin C] 1,000 mg PO DAILY 07/30/19 [History] Diclofenac Sodium/Misoprostol [Arthrotec 75 mg-200 Mcg Tab] 1 each PO BID 05/17/20 [History] Fluticasone Propionate [Flonase NASAL] 1 spray INTRANASAL DAILY 05/17/20 [History] Oxycodone HCl/Acetaminophen [Oxycodone-Acetaminophen 5-325] 1 each PO UD PRN 05/17/20 [History] Hx Tetanus, Diphtheria Vaccination/Date Given: Yes Hx Influenza Vaccination/Date Given: Yes Hx Pneumococcal Vaccination/Date Given: Yes Travel Risk - International Travel Have you traveled outside of the country in past 3 weeks: No - Coronavirus Screening Are you exhibiting any of the following symptoms?: Yes Symptoms: Cough: New Onset, Shortness of Breath Close contact with a COVID-19 positive Pt in past 14-21 Days: No - Review of Systems Constitutional: Fever, Chills, Fatigue, Malaise, Weakness Eyes: No Symptoms Ears, Nose, & Throat: Nose Congestion, Sinus Drainage, Throat Pain Respiratory: Cough, Dyspnea, Dyspnea on Exertion ([place]), Wheezing Abdominal/Gastrointestinal: No Symptoms Genitourinary Symptoms: No Symptoms Musculoskeletal: Myalgias Skin: No Symptoms Neurological: No Symptoms Psychological: No Symptoms Endocrine: No Symptoms Hematologic/Lymphatic: No Symptoms Immunological/Allergic: No Symptoms - Past Medical History Pertinent Past Medical History: Yes Neurological History: No Pertinent History ENT History: Glaucoma Cardiac History: Hypertension Respiratory History: No Pertinent History Endocrine Medical History: No Pertinent History Musculoskeletal History: Osteoarthritis GI Medical History: GERD, Gallbladder Disease History: No Pertinent History Psycho-Social History: No Pertinent History Male Reproductive Disorders: No Pertinent History Other Medical History: Neck surgery, B shoulder surgery, back surgery, hip, knee and ankle surgeries. - Past Surgical History Past Surgical History: Yes Neuro Surgical History: No Pertinent History Cardiac: No Pertinent History Respiratory: No Pertinent History Gastrointestinal: Cholecystectomy, Hernia Repair Genitourinary: No Pertinent History Musculoskeletal: Orthopedic Surgery Male Surgical History: No Pertinent History Other Surgical History: gallbladder removed, one neck surgery, three back and three shoulder and one foot surgery - Social History Smoking Status: Former smoker Exposure to second hand smoke: No Drug Use: none Patient Lives Alone: No - Nursing Vital Signs Nursing Vital Signs: Initial Vital Signs Temperature 99.4 F 05/17/20 10:24 Pulse Rate 82 05/17/20 10:24 Respiratory Rate 21 05/17/20 10:24 Blood Pressure 164/78 05/17/20 10:24 O2 Sat by Pulse Oximetry 93 L 05/17/20 10:24 Pain Scale Pain Intensity 0 - Physical Exam General Appearance: no apparent distress, alert Eye Exam: PERRL/EOMI, eyes nml inspection Ears, Nose, Throat Exam: normal ENT inspection, pharyngeal erythema Neck Exam: normal inspection, non-tender, supple, full range of motion Respiratory Exam: diminished breath sounds, wheezing Cardiovascular Exam: regular rate/rhythm, normal heart sounds Gastrointestinal/Abdomen Exam: soft, normal bowel sounds, No tenderness Back Exam: normal inspection, normal range of motion Extremity Exam: normal inspection, normal range of motion, pelvis stable Neurologic Exam: alert, oriented x 3, cooperative, 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 Skin Exam: normal color SpO2 Interpretation: normal SpO2: 93 O2 Delivery: Room Air - Course EKG Interpreted by Me: RATE (74), Sinus Rhythm, NORMAL AXIS, NORMAL INTERVALS, Non-specific ST Changes Ordered Tests: Active Orders 24 hr Category Date Time Status Supervisor [employer] STAT Care 05/17/20 10:51 Active EKG-ER Only STAT Care 05/17/20 10:51 Active IV Care Q6H Care 05/17/20 12:30 Active Isolation, Initiate & Maintain Q6H Care 05/17/20 12:30 Active Isolation, Initiate & Maintain STAT Care 05/17/20 10:51 Active CHEST 1 VIEW (PORTABLE) Stat Exams 05/17/20 10:51 Taken ARTERIAL BLOOD GASES Stat Lab 05/17/20 10:51 Results BLOOD CULTURE Stat Lab 05/17/20 11:17 Received CBC Stat Lab 05/17/20 11:18 Completed CMP Stat Lab 05/17/20 11:17 Completed Ferritin Stat Lab 05/17/20 11:17 Completed LDH-LACTATE DEHYDROGENASE Stat Lab 05/17/20 11:17 Completed Lactic Acid Stat Lab 05/17/20 10:51 Results TROPONIN Q3H Lab 05/17/20 11:17 Completed TROPONIN Q3H Lab 05/17/20 14:00 Ordered TROPONIN Q3H Lab 05/17/20 17:00 Ordered TROPONIN Q3H Lab 05/17/20 20:00 Ordered TROPONIN Q3H Lab 05/17/20 23:00 Ordered Respiratory MDI STAT RT 05/17/20 10:52 Active Respiratory Therapy Assessment DAILY RT 05/17/20 11:56 Active Respiratory Therapy Consult ROUTINE RT 05/17/20 12:30 Active Transfer Order Routine Transfer 05/17/20 Ordered Medication Summary Generic Name Dose Route Start Last Admin Trade Name Freq PRN Reason Stop Dose Admin Ceftriaxone Sodium/Dextrose 1 g in 50 mls @ 100 mls/hr 05/18/20 10:00 Rocephin 1 Gm-D5w 50 Ml Bag IV 06/17/20 09:59 Q24H10 MARRY Azithromycin 500 mg in 250 mls @ 250 mls/hr 05/18/20 10:00 Zithromax 500 Mg/ 250 Ml Nacl Premix IV 06/17/20 09:59 Q24H10 MARRY Remdesivir 200 mg/ Sodium 250 mls @ 125 mls/hr 05/17/20 12:31 Chloride IV 05/17/20 14:30 ONCE ONE Discontinued Medications Generic Name Dose Route Start Last Admin Trade Name Edmond PRN Reason Stop Dose Admin Acetaminophen 975 mg 05/17/20 10:51 05/17/20 10:57 Feverall 650 Mg [place] 05/17/20 10:52 Not Given STAT ONE Acetaminophen 650 mg 05/17/20 10:58 05/17/20 11:02 Tylenol 325 Mg PO 05/17/20 10:59 650 mg STAT STA Administration Acetaminophen Confirm 05/17/20 11:00 Tylenol 325 Mg Administered 05/17/20 11:01 Dose 650 mg .ROUTE .STK-MED ONE Albuterol Sulfate 4 puff 05/17/20 10:51 05/17/20 11:41 Ventolin Common Canister IH 05/17/20 10:52 4 puff STAT ONE Administration Dexamethasone Sodium Phosphate 10 mg 05/17/20 12:31 Decadron 10mg Inj. IV 05/17/20 12:32 STAT ONE Lab/Rad Data: Laboratory Result Diagrams 05/17/20 11:18 05/17/20 11:17 Laboratory Results 05/17/20 05/17/20 05/17/20 Range/Units 11:18 11:17 11:17 WBC 11.3 H (4.0-10.5) K/mm3 RBC 4.45 (4.1-5.6) M/mm3 Hgb 14.2 (12.5-18.0) gm/dl Hct 44.3 (42-50) % MCV 99.6 (78-100) fl MCH 31.9 (26-32) pg MCHC 32.1 (32-36) g/dl RDW 13.0 (11.5-14.0) % Plt Count 199 (150-450) K/mm3 MPV 9.4 (7.5-11.0) fl Puncture Site pCO2 (35-45) mmHg pO2 (75-100) mmHg Base Excess (-2.0-2.0) O2 Saturation (94-100) g/dF ABG pH (7.35-7.45) ABG HCO3 (22-28) ABG O2 Sat (Measured) (95-100) % Kevin Test A-a Gradient a/A Ratio Hemoglobin Carboxyhemoglobin (0.0-6.9) % THgb Methemoglobin (1.4-1.5) % Potassium (3.5-5.1) Temperature C POC O2 Flow Rate % Sodium (137-145) mmol/L Chloride (98-107) mmol/L Carbon Dioxide (22-30) mmol/L Anion Gap (5-15) MEQ/L BUN (9-20) mg/dL Creatinine (0.66-1.25) mg/dL Estimated GFR ML/MIN Glucose (74-106) mg/dL Lactic Acid (0.4-2.0) Calcium (8.4-10.2) mg/dL Ferritin 236 (17.9-464) ng/mL Total Bilirubin (0.2-1.3) mg/dL AST (17-59) U/L ALT (0-50) U/L Alkaline Phosphatase (38-126) U/L Lactate Dehydrogenase (120-246) U/L Troponin I < 0.012 (0.000-0.034) ng/mL Serum Total Protein (6.3-8.2) g/dL Albumin (3.5-5.0) g/dL 05/17/20 05/17/20 Range/Units 11:17 10:51 WBC (4.0-10.5) K/mm3 RBC (4.1-5.6) M/mm3 Hgb (12.5-18.0) gm/dl Hct (42-50) % MCV (78-100) fl MCH (26-32) pg MCHC (32-36) g/dl RDW (11.5-14.0) % Plt Count (150-450) K/mm3 MPV (7.5-11.0) fl Puncture Site Pending pCO2 30 L (35-45) mmHg pO2 131 H* (75-100) mmHg Base Excess 0.4 (-2.0-2.0) O2 Saturation 97.1 (94-100) g/dF ABG pH 7.49 H (7.35-7.45) ABG HCO3 22.9 (22-28) ABG O2 Sat (Measured) 99.5 (95-100) % Kevin Test Pending A-a Gradient -19 a/A Ratio 1.17 Hemoglobin 14.5 Carboxyhemoglobin 1.4 (0.0-6.9) % THgb Methemoglobin 1.0 L (1.4-1.5) % Potassium 4.2 4.0 (3.5-5.1) Temperature 37.0 C POC O2 Flow Rate 21 % Sodium 139 (137-145) mmol/L Chloride 105 (98-107) mmol/L Carbon Dioxide 29 (22-30) mmol/L Anion Gap 9.9 (5-15) MEQ/L BUN 30 H (9-20) mg/dL Creatinine 1.25 (0.66-1.25) mg/dL Estimated GFR > 60.0 ML/MIN Glucose 162 H (74-106) mg/dL Lactic Acid 1.4 (0.4-2.0) Calcium 9.2 (8.4-10.2) mg/dL Ferritin (17.9-464) ng/mL Total Bilirubin 0.40 (0.2-1.3) mg/dL AST 41 (17-59) U/L ALT 42 (0-50) U/L Alkaline Phosphatase 43 (38-126) U/L Lactate Dehydrogenase 297 H (120-246) U/L Troponin I (0.000-0.034) ng/mL Serum Total Protein 6.9 (6.3-8.2) g/dL Albumin 3.9 (3.5-5.0) g/dL - Progress Progress: re-examined Air Movement: good Progress Note: 05/17/20 12:42 75 years old is evaluated for flulike symptoms for almost 9 days with progressive worsening and was hypoxic at home. Patient has wheezing bilaterally with diminished breath sounds but not in any distress in the ER. ABG did not show hypoxemia. I have not ambulated patient because of risk of COVID-19 transmission/airborne/droplet. Chest x-ray showed congestion with bibasilar atelectasis versus pneumonia. White count 11, lactate of 1.4 and elevated LDH. is really concerned about him getting hypoxic. I have given him albuterol inhaler puffs along with steroid and given a dose of Rocephin/Zithromax. Discussed with Dr. Bean and patient will be started on remdesivir and is being admitted to Covid floor. Blood Culture(s) Obtained: Yes Antibiotics given: Yes Discussed with Dr.: Other (Adrienne) Will see patient in: hospital (observation) Counseled pt/family regarding: lab results, diagnosis, rad results - Departure Departure Disposition: Observation Clinical Impression: COVID-19 Respiratory failure Qualifiers: Chronicity: acute Respiratory failure complication: hypoxia Qualified Code(s): J96.01 - Acute respiratory failure with hypoxia Pneumonia Qualifiers: Pneumonia type: due to unspecified organism Laterality: right Lung location: lower lobe of lung Qualified Code(s): J18.9 - Pneumonia, unspecified organism Condition: Stable Critical Care Time: No Referrals: VENKATA SANCHEZ MD [Primary Care Provider] -
[2020-05-17] MEDS ORDERED: TYLENOL 325 MG PO STA (10:58)
[2020-05-17] MEDS ORDERED: TYLENOL 325 MG ONE (11:00)
[2020-05-17 11:19] LABS: Hematocrit 44.3 % (42-50); Hemoglobin 14.2 gm/dl (12.5-18.0); Mean Cell Volume 99.6 fl (78-100); Mean Corpuscular Hemoglobin 31.9 pg (26-32); Mean Corpuscular Hgb Concent. 32.1 g/dl (32-36); Mean Platelet Volume 9.4 fl (7.5-11.0); Platelet Count 199 K/mm3 (150-450); Red Blood Count 4.45 M/mm3 (4.1-5.6); White Blood Count 11.3 K/mm3 (4.0-10.5)
[2020-05-17 11:31] LABS: A-aADO2 -19; ABG HEMOGLOBIN 14.5; ARTERIAL BLD GAS O2 SATURATION 99.5 % (95-100); ARTERIAL BLOOD GAS BASE EXCESS 0.4 (-2.0-2.0); ARTERIAL BLOOD GAS FIO2 21 %; ARTERIAL BLOOD GAS PCO2 30 mmHg (35-45); ARTERIAL BLOOD GAS PO2 131 mmHg (75-100); ARTERIAL BLOOD GAS pH 7.49 (7.35-7.45); CARBOXYHEMOGLOBIN 1.4 % THgb (0.0-6.9); HCO3- 22.9 (22-28); HGB O2 SAT 97.1 g/dF (94-100); Lactic Acid 1.4 (0.4-2.0); paO2 pAO1 1.17
[2020-05-17 11:39] LABS: ALBUMIN 3.9 g/dL (3.5-5.0); ALKALINE PHOSPHATASE 43 U/L (38-126); ANION GAP 9.9 MEQ/L (5-15); BLOOD UREA NITROGEN 30 mg/dL (9-20); CHLORIDE 105 mmol/L (98-107); Calcium 9.2 mg/dL (8.4-10.2); Carbon Dioxide 29 mmol/L (22-30); Creatinine 1 1.25 mg/dL (0.66-1.25); EST GLOMERULAR FILTRATION RATE > 60.0 ML/MIN; Glucose 162 mg/dL (74-106); LDH-LACTATE DEHYDROGENASE 297 U/L (120-246); Potassium 4.2 mmol/L (3.5-5.1); SGOT/AST 41 U/L (17-59); SGPT/ALT 42 U/L (0-50); SODIUM 139 mmol/L (137-145); Total Protein 6.9 g/dL (6.3-8.2)
[2020-05-17] MEDS ORDERED: REMDESIVIR 200 MG in Sodium Chloride 0.9% 250 ML 250 ML IV ONE ×2 (12:31→16:00)
[2020-05-17] MEDS ORDERED: DECADRON 10MG INJ. IV ONE (12:31)
[2020-05-17] MEDS ORDERED: ROCEPHIN 1 Gm-D5w 50 ml Bag** 1 G/50 ML IVPB IV ONE (12:52)
[2020-05-17] MEDS ORDERED: DECADRON 10MG INJ. ONE (12:52)
[2020-05-17 13:40] LABS: ABG SITE lr; ALLEN TEST OK? yes
[2020-05-17] MEDS ORDERED: Zithromax 500 MG/ 250 ML NaCl Premix 500 MG/250 ML IVPB IV ONE (13:58)
[2020-05-17] MEDS ORDERED: HUMALOG SQ PRN (14:52)
[2020-05-17] MEDS: VENTOLIN COMMON CANISTER IH SCH ×2 (15:45→19:20)
[2020-05-17] MEDS ORDERED: ENOXAPARIN SODIUM SQ SCH (16:00)
[2020-05-17] MEDS: ENOXAPARIN SODIUM SQ SCH (16:41)
[2020-05-17] MEDS: hydroDIURIL 25 MG PO SCH (18:10)
[2020-05-17] MEDS: ZOCOR 20MG PO SCH (18:10)
[2020-05-17] MEDS: Protonix 40MG Tablet PO SCH (18:11)
[2020-05-17] MEDS: Zestril 20 MG PO SCH (18:19)
--- NOTE | 2020-05-17 18:57 | XRAY ---
Indication: Short of breath. Low oxygenation. Suspect Covid 19. Comparison: November 09, 2011. Portable chest demonstrates new bilateral mid to lower lung interstitial alveolar opacities without consolidation/large effusion. Remaining heart and bony thorax unremarkable.
[2020-05-17] MEDS: NEURONTIN 300 MG PO SCH (21:23)
[2020-05-17] MEDS: Decadron 4 MG INJ IV SCH (21:23)
[2020-05-17] MEDS: TYLENOL 325 MG PO PRN (21:23)
[2020-05-17] MEDS: Pepcid 20 MG VIAL IV SCH (21:23)
[2020-05-17] MEDS ORDERED: NON-FORMULARY ITEM (Omeprazole 20 Mg [Prilosec 20 Mg] 20 MG) PO SCH (22:00)
[2020-05-17] MEDS ORDERED: NON-FORMULARY ITEM (Lisinopril/Hydrochlorothiazide [Lisinopril-Hctz 20-12.5 Mg Tab] 1 TAB) PO SCH (22:00)
[2020-05-17] MEDS ORDERED: NON-FORMULARY ITEM (Simvastatin 40 Mg [Zocor 40 Mg] 40 MG) PO SCH (22:00)
[2020-05-18] MEDS: CEPACOL SORE THROAT LOZENGE PO PRN ×2 (00:08→05:38)
[2020-05-18 05:22] LABS: Hematocrit 46.6 % (42-50); Hemoglobin 15.1 gm/dl (12.5-18.0); Mean Cell Volume 98.1 fl (78-100); Mean Corpuscular Hemoglobin 31.8 pg (26-32); Mean Corpuscular Hgb Concent. 32.4 g/dl (32-36); Mean Platelet Volume 9.5 fl (7.5-11.0); Platelet Count 215 K/mm3 (150-450); Red Blood Count 4.75 M/mm3 (4.1-5.6)
[2020-05-18 05:39] LABS: INR 1.04 (0.8-3.0); PROTIME 11.8 SECONDS (8.83-12.87)
[2020-05-18 05:45] LABS: ALKALINE PHOSPHATASE 48 U/L (38-126); ANION GAP 10.2 MEQ/L (5-15); BLOOD UREA NITROGEN 23 mg/dL (9-20); CHLORIDE 102 mmol/L (98-107); Calcium 9.5 mg/dL (8.4-10.2); Carbon Dioxide 31 mmol/L (22-30); EST GLOMERULAR FILTRATION RATE > 60.0 ML/MIN; Glucose 175 mg/dL (74-106); Potassium 4.5 mmol/L (3.5-5.1); SGOT/AST 48 U/L (17-59); SGPT/ALT 48 U/L (0-50); SODIUM 139 mmol/L (137-145); Total Protein 7.4 g/dL (6.3-8.2)
[2020-05-18] MEDS: TYLENOL 325 MG PO PRN (05:51)
[2020-05-18 06:05] LABS: BAND 11 % (0.0-2.0); Lymphocytes 8 % (24-44); Monocyte 1 % (0.0-12.0); Neutrophils 80 % (36.-66.); Total Cells Counted 100
[2020-05-18 06:06] LABS: Platelet Estimate NORMAL (NORMAL)
[2020-05-18] MEDS: VENTOLIN COMMON CANISTER IH SCH ×4 (08:15→19:59)
[2020-05-18] MEDS: Flonase NASAL NS SCH (09:03)
[2020-05-18] MEDS: ENOXAPARIN SODIUM SQ SCH (09:03)
[2020-05-18] MEDS: Decadron 4 MG INJ IV SCH ×2 (09:03→21:01)
[2020-05-18] MEDS: Pepcid 20 MG VIAL IV SCH ×2 (09:04→21:01)
[2020-05-18] MEDS: Vitamin C 500 MG PO SCH (09:04)
[2020-05-18] MEDS: NEURONTIN 300 MG PO SCH ×2 (09:04→17:12)
[2020-05-18] MEDS: hydroDIURIL 25 MG PO SCH ×2 (09:05→21:01)
[2020-05-18] MEDS: Zestril 20 MG PO SCH ×2 (09:06→21:01)
[2020-05-18] MEDS: Protonix 40MG Tablet PO SCH ×2 (09:06→17:13)
[2020-05-18] MEDS ORDERED: Zithromax 500 MG/ 250 ML NaCl Premix 500 MG/250 ML IVPB IV SCH ×2 (10:00)
[2020-05-18] MEDS ORDERED: NON-FORMULARY ITEM (Ascorbic Acid [Vitamin C] 1,000 MG) PO SCH (10:00)
[2020-05-18] MEDS ORDERED: ROCEPHIN 1 Gm-D5w 50 ml Bag** 1 G/50 ML IVPB IV SCH ×2 (10:00)
[2020-05-18] MEDS: PERCOCET TABLET 5/325MG PO PRN ×2 (11:25→21:11)
[2020-05-18 14:39] LABS: ABO TYPING A; RH TYPING POSITIVE
[2020-05-18 14:45] LABS: Antibody Screen NEGATIVE (NEGATIVE)
[2020-05-18] MEDS: REMDESIVIR 100 MG in Sodium Chloride 0.9% 100 ML IVPB 100 ML IV SCH (15:04)
--- NOTE | 2020-05-18 15:50 | CONS ---
CONSULT DATE: 05/18/2020 HISTORY: Favian Nevarez is a 75 year old male well known to me from previous office visits, who started to have symptoms of COVID on 05/08/2020. The patient reports that about two days ago he had desaturation that led to emergency room visit and subsequent hospitalization. He has been started on Remdesivir. The patient had desaturating with cough but recovered. He is currently on oxygen via nasal cannula at about 4 to 5 liters. He otherwise looks comfortable sitting in a chair. He denies any fever or chest pain. He also denies any headache, nausea, vomiting, diarrhea or any GI symptoms of COVID. PAST MEDICAL HISTORY: He has chronic back pain, obstructive sleep apnea. PAST SURGICAL HISTORY: No recent surgery. PERSONAL AND SOCIAL HISTORY: Reviewed. MEDICATIONS: Home and current medications are reviewed. ALLERGIES: ALLERGIES REVIEWED. PHYSICAL EXAMINATION: This is a middle aged male who appears fairly comfortable. Vital signs noted. HEENT: Normocephalic. Pupils are reactive. Oropharynx is small. NECK: Supple. CVS: First and second heart sounds are normal, regular, rhythmic. RESPIRATORY: Breath sounds are diminished, occasional crackles are heard. ABDOMEN: Soft. EXTREMITIES: No edema is noted. LABORATORY DATA AND TESTS: White count 11.3, hemoglobin 13.2, hemoglobin 44, PLT 199,000. Ferritin 236. Troponin I negative. Sodium 139, chloride 105, bicarb 29, BUN 30, creatinine 1.2. Lactate dehydrogenase 297. COVID test positive. Potassium 4.2. The pH 7.49, pCO2 of 30, pO2 of 131 on nasal cannula. Chest x-ray showed bilateral lower lobe lung field infiltrate. ASSESSMENT: This is a 75 year old male admitted with: 1) Acute hypoxic respiratory failure. 2) COVID-19 positive. 3) Viral pneumonia from COVID-19. 4) Obstructive sleep apnea on CPAP therapy. 5) Chronic back pain. RECOMMENDATIONS: 1) The patient has been admitted to the hospital. 2) Continue supplemental oxygen. 3) Discussed with patient rotational therapy including turning self if desires being in bed. 4) Agree with continuation of Remdesivir therapy per recommendations. 5) The patient will benefit from convalescent plasma although this is right around day ten and will order 2 units of plasma as available. 6) Routine COVID culture, antibiotics, steroids, Decadron therapy along with deep venous thrombosis prophylaxis. I will be available if needed. Thank you for allowing me to participate in the care of your patient.
[2020-05-18] MEDS: ZOCOR 20MG PO SCH (17:13)
[2020-05-18] MEDS ORDERED: Sodium Chloride 0.9% 500 ML 500 ML IV ONE (22:31)
[2020-05-18] MEDS ORDERED: Sodium Chloride 0.9% 500 ML 500 ML IV SCH (23:00)
[2020-05-19 05:34] LABS: Hematocrit 45.7 % (42-50); Hemoglobin 14.7 gm/dl (12.5-18.0); Mean Cell Volume 98.7 fl (78-100); Mean Corpuscular Hemoglobin 31.7 pg (26-32); Mean Corpuscular Hgb Concent. 32.2 g/dl (32-36); Mean Platelet Volume 9.2 fl (7.5-11.0); Platelet Count 219 K/mm3 (150-450); Red Blood Count 4.63 M/mm3 (4.1-5.6); White Blood Count 13.8 K/mm3 (4.0-10.5)
[2020-05-19 05:51] LABS: INR 1.07 (0.8-3.0); PROTIME 12.1 SECONDS (8.83-12.87)
[2020-05-19 05:59] LABS: ALBUMIN 3.9 g/dL (3.5-5.0); ALKALINE PHOSPHATASE 49 U/L (38-126); ANION GAP 10.9 MEQ/L (5-15); BLOOD UREA NITROGEN 27 mg/dL (9-20); CHLORIDE 101 mmol/L (98-107); Calcium 9.7 mg/dL (8.4-10.2); Carbon Dioxide 32 mmol/L (22-30); Creatinine 1 0.85 mg/dL (0.66-1.25); EST GLOMERULAR FILTRATION RATE > 60.0 ML/MIN; Glucose 181 mg/dL (74-106); Potassium 4.6 mmol/L (3.5-5.1); SGOT/AST 44 U/L (17-59); SGPT/ALT 49 U/L (0-50); SODIUM 139 mmol/L (137-145); Total Protein 7.3 g/dL (6.3-8.2)
[2020-05-19 06:42] LABS: BAND 1 % (0.0-2.0); Lymphocytes 8 % (24-44); Monocyte 2 % (0.0-12.0); Neutrophils 89 % (36.-66.); Total Cells Counted 100
[2020-05-19 06:43] LABS: Platelet Estimate NORMAL (NORMAL)
[2020-05-19] MEDS: VENTOLIN COMMON CANISTER IH SCH ×4 (07:00→18:39)
[2020-05-19 08:27] LABS: A-aADO2 603; ABG HEMOGLOBIN 15.5; ABG POTASSIUM 4.3 (3.5-5.1); ARTERIAL BLD GAS O2 SATURATION 94.6 % (95-100); ARTERIAL BLOOD GAS FIO2 100 %; ARTERIAL BLOOD GAS PCO2 37 mmHg (35-45); ARTERIAL BLOOD GAS PO2 64 mmHg (75-100); ARTERIAL BLOOD GAS pH 7.52 (7.35-7.45); CARBOXYHEMOGLOBIN 1.7 % THgb (0.0-6.9); HCO3- 30.2 (22-28); HGB O2 SAT 92.3 g/dF (94-100); Methhemoglobin 0.7 % (1.4-1.5)
[2020-05-19 08:28] LABS: ABG SITE LEFT RADIAL; ALLEN TEST OK? YES
[2020-05-19 08:30] LABS: O2 CONTENT 100 % vol
[2020-05-19] MEDS ORDERED: Ativan 2 MG/1 ML VIAL IV PRN (08:48)
[2020-05-19] MEDS: Decadron 4 MG INJ IV SCH ×2 (08:52→21:45)
[2020-05-19] MEDS: ENOXAPARIN SODIUM SQ SCH (08:52)
[2020-05-19] MEDS: hydroDIURIL 25 MG PO SCH ×2 (08:53→21:45)
[2020-05-19] MEDS: Protonix 40MG Tablet PO SCH ×2 (08:54→21:47)
[2020-05-19] MEDS: NEURONTIN 300 MG PO SCH ×2 (08:54→21:46)
[2020-05-19] MEDS: Vitamin C 500 MG PO SCH (08:55)
[2020-05-19] MEDS: PERCOCET TABLET 5/325MG PO PRN ×4 (08:55→23:22)
[2020-05-19] MEDS: Pepcid 20 MG VIAL IV SCH ×2 (08:56→21:47)
[2020-05-19] MEDS: Zestril 20 MG PO SCH ×2 (08:57→21:47)
--- NOTE | 2020-05-19 08:59 | HP ---
CHIEF COMPLAINT: Shortness of breath and cough. HISTORY OF PRESENT ILLNESS: The patient tested positive for COVID with a cough and his O2 dropping on ambulation. 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 He has not traveled outside of the country. He does not know exactly where he got the COVID unless it came from the hospital by his of course. He said he has had no GI upset. Low grade fever and short of breath on walking. No severe pain. He does not feel particularly bad. MEDICATIONS: Tylenol, Albuterol puffer. Voltaren, Flonase, Percocet 5/325 every four hours PRN. He has received dexamethasone injection 10 ml. ALLERGIES: KETOROLAC. MORPHINE. PAST MEDICAL/SURGICAL HISTORY: His main problem is multiple tears of rotator cuff however he can do most things except reach overhead and he is not a good candidate for surgery nor does he want to as its been operated on three times. He has arthritis of the knees and also back. Cholecystectomy. One neck surgery. Three back surgeries. Three shoulder surgeries. One foot surgery. Hypertension. REVIEW OF SYSTEMS: HEENT: History of glaucoma. ENDOCRINE: No diabetes. CVS: He does have some hypertension. GI: Gastroesophageal reflux disease, gallbladder removed years ago. PSYCHOSOCIAL: No history of depression or mental disorders. SOCIAL HISTORY: He has been retired eight years prior to getting pain pills for the multiple surgeries. There has not been any dependency on narcotics or other drugs. PHYSICAL EXAMINATION: The patient is an appropriately aged, sturdy looking 75 year old white male who is in no distress. VITAL SIGNS: Pulse 94, respirations 14, blood pressure 140/60. Pulse ox resting is 96. It did drop into the 70's when he was ambulating. HEENT: Pupils equal and reactive to light. NECK: No JVD. No thyromegaly. CHEST: Few crackles bilateral. CVS: Distant and regular. ABDOMEN: Obese. No tenderness or organomegaly. EXTREMITIES: No cyanosis. No edema. LAB DATA AND TESTS: The patient's COVID test was positive. His D-dimer on 05/18/2020 has gone up a little bit to 1010. BUN and creatinine normal. Blood sugar 175. INR normal. White count 14,000 yesterday. D-dimer yesterday was 852. IMPRESSION: The patient has COVID pneumonia moderate severity. His D-dimer is in the mid-range, pretty well stabilized. His condition has stabilized overnight here. PLAN: Will continue Remdesivir, Decadron, oxygen presently on 5 liters with saturations in the upper 90's. PROGNOSIS: Good.
[2020-05-19] MEDS: BUMEX 1 MG IV ONE ×2 (09:06→11:33)
--- NOTE | 2020-05-19 09:30 | XRAY ---
Indication: Hypoxia. Covid 19 pneumonia. Comparison: May 17, 2020. Portable chest demonstrates mild worsening diffuse bilateral interstitial alveolar opacities, greatest left base. No consolidation/large effusion. Heart and mediastinal structures within normal limits.
[2020-05-19 11:05] LABS: A-aADO2 240; ABG HEMOGLOBIN 16.6; ABG POTASSIUM 4.1 (3.5-5.1); ABG SITE RIGHT RADIAL; ALLEN TEST OK? YES; ARTERIAL BLD GAS O2 SATURATION 99.5 % (95-100); ARTERIAL BLOOD GAS BASE EXCESS 6.2 (-2.0-2.0); ARTERIAL BLOOD GAS FIO2 60 %; ARTERIAL BLOOD GAS PCO2 37 mmHg (35-45); ARTERIAL BLOOD GAS PO2 142 mmHg (75-100); ARTERIAL BLOOD GAS pH 7.51 (7.35-7.45); CARBOXYHEMOGLOBIN 1.1 % THgb (0.0-6.9); HCO3- 29.5 (22-28); HGB O2 SAT 97.4 g/dF (94-100); paO2 pAO1 0.37
[2020-05-19] MEDS: Flonase NASAL NS SCH (11:34)
[2020-05-19] MEDS: REMDESIVIR 100 MG in Sodium Chloride 0.9% 100 ML IVPB 100 ML IV SCH (16:06)
[2020-05-19] MEDS: ZOCOR 20MG PO SCH (21:49)
[2020-05-20] MEDS: VENTOLIN COMMON CANISTER IH SCH ×4 (05:42→18:30)
[2020-05-20 06:15] LABS: INR 1.09 (0.8-3.0); PROTIME 12.3 SECONDS (8.83-12.87)
[2020-05-20 06:16] LABS: ALBUMIN 3.8 g/dL (3.5-5.0); ALKALINE PHOSPHATASE 52 U/L (38-126); ANION GAP 12.5 MEQ/L (5-15); BLOOD UREA NITROGEN 43 mg/dL (9-20); CHLORIDE 98 mmol/L (98-107); Calcium 9.8 mg/dL (8.4-10.2); Carbon Dioxide 33 mmol/L (22-30); Creatinine 1 1.02 mg/dL (0.66-1.25); EST GLOMERULAR FILTRATION RATE > 60.0 ML/MIN; Glucose 187 mg/dL (74-106); Potassium 4.9 mmol/L (3.5-5.1); SGOT/AST 53 U/L (17-59); SGPT/ALT 76 U/L (0-50); SODIUM 139 mmol/L (137-145); Total Protein 6.8 g/dL (6.3-8.2)
[2020-05-20 08:31] LABS: A-aADO2 525; ABG HEMOGLOBIN 16.3; ABG POTASSIUM 4.2 (3.5-5.1); ARTERIAL BLD GAS O2 SATURATION 94.3 % (95-100); ARTERIAL BLOOD GAS BASE EXCESS 6.4 (-2.0-2.0); ARTERIAL BLOOD GAS FIO2 90 %; ARTERIAL BLOOD GAS PCO2 41 mmHg (35-45); ARTERIAL BLOOD GAS PO2 65 mmHg (75-100); ARTERIAL BLOOD GAS pH 7.48 (7.35-7.45); CARBOXYHEMOGLOBIN 1.4 % THgb (0.0-6.9); HCO3- 30.5 (22-28); HGB O2 SAT 92.1 g/dF (94-100); Methhemoglobin 0.8 % (1.4-1.5); paO2 pAO1 0.11
[2020-05-20 08:32] LABS: ABG SITE RIGHT RADIAL; ALLEN TEST OK? YES
--- NOTE | 2020-05-20 08:46 | PROG NOTE ---
HISTORY: Today Favian's O2 has dropped. His blood gas this morning before putting him on BiPAP was 7.5, pO2 64 and pCO2 37. He has been on BiPAP and he said he feels better. His gas is up in low 90's. D-dimer is elevated from yesterday at 900, I believe. On exam his chest had decreased base sounds at the bases. He did not get much sleep due to getting the plasma. I ordered some Ativan for anxiety and also nausea. Presently he is talking well; alert, orientated and hopefully he will get some sleep. I added some diuretic due to the large amount of fluid he got last night. Dr. Apple is calling the shots. I am hoping to see him improve today. I have updated his . IMPRESSION: COVID pneumonia.
[2020-05-20] MEDS: Decadron 4 MG INJ IV SCH ×2 (09:52→21:58)
[2020-05-20] MEDS: hydroDIURIL 25 MG PO SCH ×2 (09:54→21:58)
[2020-05-20] MEDS: ENOXAPARIN SODIUM SQ SCH (09:54)
[2020-05-20] MEDS: NEURONTIN 300 MG PO SCH ×2 (09:55→21:59)
[2020-05-20] MEDS: Pepcid 20 MG VIAL IV SCH ×2 (09:56→22:00)
[2020-05-20] MEDS: Protonix 40MG Tablet PO SCH ×2 (09:57→22:00)
[2020-05-20] MEDS: Vitamin C 500 MG PO SCH (09:57)
[2020-05-20] MEDS: Zestril 20 MG PO SCH ×2 (09:58→22:00)
--- NOTE | 2020-05-20 11:52 | PROG NOTE ---
DATE: 05/20/2020 CHIEF COMPLAINT: Facial pain from the BiPAP, shortness of breath on exertion, dry mouth. HISTORY: He denies chest pain. He states he has fair appetite. He does not want any lunch. His cough is doing better. His pain is controlled with Percocet. The patient last night was switched from BiPAP to high flow oxygen mainly because he could not tolerate the pressure on his face from the device. He did very well on the high flow oxygen. O2 staying up in the 90's, dropping to the upper 80's with exertion as he walks to the bathroom. Pulse ox this morning have all been running in the 90's. Blood pressure has been good at 141/76 this morning. Pulse in the 50's to 60's. Chest clear upper lobes, crackles lower lobes. Creatinine today is normal. Blood sugar 187. Electrolytes are fine. His D-dimer is elevated to 1,098. It is about stable from yesterday. IMPRESSION: The patient has been stable the last two days and might actually be a little bit better today. Hopefully the disease has been arrested with the plasma, Decadron and Remdesivir. Will continue the plasma and his home medications. Hopefully tomorrow might be able to decrease oxygen, if improved from his pneumonia.
[2020-05-20] MEDS: Flonase NASAL NS SCH (12:00)
[2020-05-20] MEDS: BENADRYL 25 MG CAPSULE PO PRN ×3 (14:08→22:39)
[2020-05-20] MEDS: REMDESIVIR 100 MG in Sodium Chloride 0.9% 100 ML IVPB 100 ML IV SCH (15:59)
[2020-05-20] MEDS: PERCOCET TABLET 5/325MG PO PRN (18:12)
[2020-05-20] MEDS: ZOCOR 20MG PO SCH (22:00)
[2020-05-21] MEDS: PERCOCET TABLET 5/325MG PO PRN ×3 (00:06→21:24)
[2020-05-21 06:11] LABS: ALBUMIN 3.7 g/dL (3.5-5.0); ALKALINE PHOSPHATASE 45 U/L (38-126); ANION GAP 9.1 MEQ/L (5-15); BLOOD UREA NITROGEN 42 mg/dL (9-20); CHLORIDE 98 mmol/L (98-107); Calcium 9.5 mg/dL (8.4-10.2); Carbon Dioxide 34 mmol/L (22-30); Creatinine 1 1.04 mg/dL (0.66-1.25); EST GLOMERULAR FILTRATION RATE > 60.0 ML/MIN; Glucose 185 mg/dL (74-106); Potassium 4.9 mmol/L (3.5-5.1); SGOT/AST 39 U/L (17-59); SGPT/ALT 71 U/L (0-50); SODIUM 136 mmol/L (137-145); Total Protein 6.8 g/dL (6.3-8.2)
[2020-05-21 06:14] LABS: INR 1.08 (0.8-3.0); PROTIME 12.2 SECONDS (8.83-12.87)
[2020-05-21] MEDS: VENTOLIN COMMON CANISTER IH SCH ×4 (07:10→18:55)
--- NOTE | 2020-05-21 08:51 | XRAY ---
Indication: Hypoxia. Follow-up Covid 19 pneumonia. Comparison: May 19, 2020. Portable chest again demonstrates diffuse bilateral interstitial alveolar opacities with minimal left base clearing. Heart is not enlarged. No new cardiopulmonary abnormalities.
[2020-05-21] MEDS: Protonix 40MG Tablet PO SCH ×2 (08:57→18:07)
[2020-05-21] MEDS: BENADRYL 25 MG CAPSULE PO PRN ×2 (08:57→21:24)
[2020-05-21] MEDS: hydroDIURIL 25 MG PO SCH ×2 (08:58→18:01)
[2020-05-21] MEDS: Flonase NASAL NS SCH (08:58)
[2020-05-21] MEDS: Pepcid 20 MG VIAL IV SCH ×2 (08:59→21:23)
[2020-05-21] MEDS: Vitamin C 500 MG PO SCH (08:59)
[2020-05-21] MEDS: Decadron 4 MG INJ IV SCH ×2 (09:00→21:23)
[2020-05-21] MEDS: ENOXAPARIN SODIUM SQ SCH (09:00)
[2020-05-21] MEDS: Zestril 20 MG PO SCH ×2 (09:00→18:02)
[2020-05-21] MEDS: NEURONTIN 300 MG PO SCH ×3 (12:05→21:23)
--- NOTE | 2020-05-21 15:06 | PROG NOTE ---
CONSULT DATE: 05/21/2020 Events noted. Chart reviewed. HISTORY: The patient remains dyspneic and hypoxic. He had declined use of noninvasive ventilator last night and stayed on heated high flow at 40 liters flow and 60% oxygen maintaining saturations in the mid 90's. However during ambulation and using the bathroom, he had been switched to Oxymizer at 50 liters and desaturation down to high 70's to low 80's on the same. He is sitting in chair eager to go home. PHYSICAL EXAMINATION: Vital signs noted. HEENT: Normocephalic. Oral exam shows small oropharynx. CVS: First and second heart sounds normal, regular, rhythmic. RESPIRATORY: Shows diminished breath sounds. Crackles have improved. ABDOMEN: Soft. EXTREMITIES: No edema is noted. LABORATORY DATA AND TESTS: Labs reviewed. Chest x-ray reviewed. ASSESSMENT: This is a 75 year old patient admitted with: 1) Acute on chronic hypoxia with respiratory failure. 2) COVID-19 positive. 3) Viral pneumonia from COVID-19. 4) Underlying obstructive sleep apnea. RECOMMENDATIONS: The patient's oxygen requirements are still significantly high for discharge. Hopefully he can be weaned down to ideally 6 liters or so on Oxymizer. He can possibly be discharged home on 10 liter concentrator with some buffer for increasing supplemental oxygen in case of desaturation. He finishes his Remdesivir therapy today. Chest x-ray does appear somewhat better. Advised patient to remain patient and hope for improvement in oxygenation before he can be discharged.
[2020-05-21] MEDS: REMDESIVIR 100 MG in Sodium Chloride 0.9% 100 ML IVPB 100 ML IV SCH (16:11)
[2020-05-21] MEDS: ZOCOR 20MG PO SCH (18:02)
[2020-05-21] MEDS ORDERED: hydroDIURIL 25 MG PO SCH (20:30)
[2020-05-21] MEDS ORDERED: ZOCOR 20MG PO SCH (20:30)
[2020-05-21] MEDS ORDERED: Protonix 40MG Tablet PO SCH (20:30)
[2020-05-21] MEDS ORDERED: Zestril 20 MG PO SCH (20:30)
[2020-05-21] MEDS: Xalatan OP SCH (21:23)
[2020-05-21] MEDS: SENOKOT 8.6 MG PO PRN (21:24)
[2020-05-22] MEDS: VENTOLIN COMMON CANISTER IH SCH ×4 (07:02→19:10)
[2020-05-22] MEDS: Vitamin C 500 MG PO SCH (08:20)
[2020-05-22] MEDS: Zestril 20 MG PO SCH ×2 (08:20→17:10)
[2020-05-22] MEDS: hydroDIURIL 25 MG PO SCH ×2 (08:20→17:16)
[2020-05-22] MEDS: Decadron 4 MG INJ IV SCH ×2 (10:37→21:28)
[2020-05-22] MEDS: Pepcid 20 MG VIAL IV SCH ×2 (10:37→21:28)
[2020-05-22] MEDS: ENOXAPARIN SODIUM SQ SCH (10:40)
[2020-05-22] MEDS: BENADRYL 25 MG CAPSULE PO PRN ×3 (10:41→21:29)
[2020-05-22] MEDS: PERCOCET TABLET 5/325MG PO PRN ×2 (11:08→21:30)
--- NOTE | 2020-05-22 11:29 | PROG NOTE ---
DATE: 05/22/2020 HISTORY: The patient slept well, has some nausea. He has got his high flow oxygen on at 50 and it is now down to 30 and I am going to drop it some more today. He does not feel short of breath. He is anxious. He states his back pain is under control. His chest has rhonchi and rales at the bases. Heart rate 90 and regular. Yesterday his electrolytes were normal. Blood sugar 184. Overall, he has been stabilized and is slightly better. I keep explaining to him that we are just going to have to give him time for his lungs to heal up. I think his prognosis is good at this point although it is probably going to be another two days.
[2020-05-22] MEDS: NEURONTIN 300 MG PO SCH ×2 (12:32→21:28)
[2020-05-22] MEDS: Flonase NASAL NS SCH (17:06)
[2020-05-22] MEDS: Protonix 40MG Tablet PO SCH (17:10)
[2020-05-22] MEDS: ZOCOR 20MG PO SCH (17:10)
[2020-05-22] MEDS: SENOKOT 8.6 MG PO PRN (21:30)
[2020-05-22] MEDS: Xalatan OP SCH (21:43)
[2020-05-23] MEDS: hydroDIURIL 25 MG PO SCH (08:16)
[2020-05-23] MEDS: Vitamin C 500 MG PO SCH (08:16)
[2020-05-23] MEDS: Protonix 40MG Tablet PO SCH (08:16)
[2020-05-23] MEDS: Zestril 20 MG PO SCH (08:17)
[2020-05-23] MEDS: PERCOCET TABLET 5/325MG PO PRN (08:34)
[2020-05-23] MEDS: BENADRYL 25 MG CAPSULE PO PRN (08:34)
[2020-05-23] MEDS: ENOXAPARIN SODIUM SQ SCH (10:26)
[2020-05-23] MEDS: Pepcid 20 MG VIAL IV SCH (10:26)
[2020-05-23] MEDS: Decadron 4 MG INJ IV SCH (10:26)
[2020-05-23] MEDS: Flonase NASAL NS SCH (11:46)
[2020-05-23 11:59] VITALS: BP 119/67; PULSE 58; O2SAT 93
--- NOTE | 2020-05-27 11:36 | DS ---
DISCHARGE DIAGNOSES: 1) COVID PNEUMONIA. 2) HYPOXIA WITH RESPIRATORY FAILURE. 3) UNDERLYING OBSTRUCTIVE SLEEP APNEA. HOSPITAL COURSE: The patient was admitted after his and he both tested positive and his oxygen dropped real low at home. 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 He had initially a downhill course requiring large amounts of high flow oxygen. He was on Decadron the entire stay intravenously. Simvastatin. He received 2 units of plasma. He was anticoagulated. His D-dimer went to about 1400. He was followed by Dr. Maurice Apple, Public Policy Analyst. He has been real stable for the last three days on high flow oxygen. He will be discharged on that as well as Decadron, Eliquis 2.5 b.i.d. Follow up with his physician and Dr. Apple in one week. He is considered no longer infectious since he has had this now for greater than ten days. He is to return if he gets significantly short of breath. PROGNOSIS: Good.
== END 2020-05-23 12:31 | disposition home or self-care (01) | DRG 177 ==
LOC: ED 10:10 → MED SURG 14:44 → INTOOBSV 14:44 → MED SURG 19:53 → ED 05-18 10:10 → OBSVTOIN 05-18 10:12 → MED SURG 05-18 14:44
PROVIDERS: ADMIT Family Medicine; ATTEND Family Medicine
DX: U07.1 COVID-19 (principal); J12.89 Other viral pneumonia; J96.21 Acute and chronic respiratory failure with hypoxia; Z79.899 Other long term (current) drug therapy; I10 Essential (primary) hypertension; F41.9 Anxiety disorder, unspecified; R11.0 Nausea; M54.9 Dorsalgia, unspecified; G47.33 Obstructive sleep apnea (adult) (pediatric)
CPT/HCPCS: 36415; 36430; 36600; 71045; 80053; 82375; 82728; 82803; 83605; 83615; 84484; 85025; 85027; 85379; 85610; 86850; 86900; 86901; 86931; 87040; 93005; 93041; 93268; 94002; 94003; 94640; 94762; 96365; 96367; 96374; 99285; J0456; J0696; J1100; J1650; J2060; P9017; U0003; A9270-GY; G0378

== ENCOUNTER 2020-11-25 09:48 | Day surgery (SDC) | payer OTHER, MEDICARE ==
[2020-11-25] MEDS ORDERED: DIPRIVAN 200 MG/20 ML IV ONE (09:49)
[2020-11-25] MEDS ORDERED: Sodium Chloride 0.9(Preservative Free) 10 ML IJ ONE (09:49)
[2020-11-25] MEDS ORDERED: Depo-Medrol 40 MG/ML IM ONE (09:49)
--- NOTE | 2020-11-25 14:55 | XRAY ---
Indication: Right L4-S1 transforaminal ALCIRA. Intraoperative fluoroscopy provided for 24 seconds. 2 digital spot images submitted for interpretation demonstrates posterior needle tips projecting over the expected right L4 and L5 nerve roots. Small amount of contrast injected for needle tip placement. Correlate with intraoperative findings/report. Incidental incompletely visualized bilateral L4-S1 posterior fusion hardware.
--- NOTE | 2020-11-25 15:06 | XRAY ---
24 seconds of fluoroscopy was used in surgery for a right L4-L5, L5-S1 transforaminal ALCIRA.
[2020-11-25] MEDS ORDERED: Lactated Ringers 1,000 ML IV ONE (16:01)
== END 2020-11-25 11:53 | disposition home or self-care (01) ==
LOC: SDC-PAIN 09:48
PROVIDERS: ATTEND Psychiatry & Neurology Pain Medicine
DX: M54.16 Radiculopathy, lumbar region (principal); I10 Essential (primary) hypertension; K21.9 Gastro-esophageal reflux disease without esophagitis; E78.5 Hyperlipidemia, unspecified; H40.9 Unspecified glaucoma; G62.9 Polyneuropathy, unspecified; Z79.899 Other long term (current) drug therapy
CPT/HCPCS: 64483; 64484; 72100; 77003; J1030; J2704; Q9966

== ENCOUNTER 2021-03-31 08:20 | Day surgery (SDC) | payer OTHER, MEDICARE ==
[2021-03-31] MEDS ORDERED: Depo-Medrol 40 MG/ML IM ONE (08:21)
[2021-03-31] MEDS ORDERED: Sodium Chloride 0.9(Preservative Free) 10 ML IJ ONE (08:21)
[2021-03-31] MEDS ORDERED: Xylocaine 1% Vial 30 ML PF IJ ONE (08:21)
[2021-03-31] MEDS ORDERED: DIPRIVAN 200 MG/20 ML IV ONE (10:07)
--- NOTE | 2021-03-31 11:59 | XRAY ---
Indication: Lumbar ALCIRA. Intraoperative fluoroscopy provided for 49 seconds. 2 digital spot image submitted for interpretation demonstrates posterior needle tip projecting just posterior to L2-L3 interspace. Small amount of contrast injected for needle tip placement. Correlate with intraoperative findings/report.
--- NOTE | 2021-03-31 12:10 | XRAY ---
49 seconds of fluoroscopy was used in surgery for a lumbar ALICRA.
[2021-03-31] MEDS ORDERED: Lactated Ringers 1,000 ML IV ONE (16:25)
== END 2021-03-31 10:47 | disposition home or self-care (01) ==
LOC: SDC-PAIN 08:20
PROVIDERS: ATTEND Psychiatry & Neurology Pain Medicine
DX: M54.16 Radiculopathy, lumbar region (principal); Z79.899 Other long term (current) drug therapy
CPT/HCPCS: 62323; 72100; 77003; J1030; J2001; J2704; Q9966

== ENCOUNTER 2021-10-19 12:19 | Day surgery (SDC) | payer OTHER, MEDICARE ==
[2021-10-19] MEDS ORDERED: CEFAZOLIN 2 GM-D5W BAG** 2 GM/50 ML ML IV SCH (12:30)
[2021-10-19] MEDS ORDERED: Lactated Ringers 1,000 ML IV SCH (12:30)
[2021-10-19 13:29] VITALS: BP 152/85; PULSE 71; O2SAT 95
[2021-10-19] MEDS ORDERED: Lactated Ringers 0 ML IV ONE ×2 (13:59→14:30)
[2021-10-19] MEDS ORDERED: CEFAZOLIN 2 GM IV ONE (13:59)
[2021-10-19] MEDS ORDERED: D5W IV ONE (13:59)
== END 2021-10-19 16:00 | disposition home or self-care (01) ==
LOC: SDC 12:19
PROVIDERS: ATTEND Podiatrist Foot & Ankle Surgery
DX: Z53.8 Procedure and treatment not carried out for other reasons (principal)
CPT/HCPCS: J0690

== ENCOUNTER 2021-10-22 06:03 | Day surgery (SDC) | payer OTHER, MEDICARE ==
[2021-10-22] MEDS ORDERED: BUPIVACAINE 0.5% VIAL IJ ONE (06:24)
[2021-10-22] MEDS ORDERED: XYLOCAINE 1% HCL 20 ML MDV ONE (06:24)
[2021-10-22] MEDS ORDERED: CEFAZOLIN 2 GM-D5W BAG** 2 GM/50 ML ML IV SCH (06:30)
[2021-10-22] MEDS ORDERED: Lactated Ringers 1,000 ML IV SCH (06:30)
[2021-10-22] MEDS ORDERED: SUBLIMAZE 100 MCG/2 ML ONE (06:54)
[2021-10-22] MEDS ORDERED: DIPRIVAN 200 MG/20 ML IV ONE ×2 (06:54→07:02)
[2021-10-22] MEDS ORDERED: Versed 2 MG/2 ML Injection ONE ×2 (06:54→07:13)
[2021-10-22] MEDS ORDERED: Xylocaine-Mpf 2% 5 Ml Vial ONE (06:54)
[2021-10-22] MEDS ORDERED: OFIRMEV 100 ML IV ONE (07:16)
[2021-10-22 09:35] VITALS: O2SAT 94
--- NOTE | 2021-10-22 09:36 | XRAY ---
Indication: Osteotomy and Theodore procedure left 2nd toe. Intraoperative fluoroscopy provided for 15 seconds. 5 digital spot images submitted for interpretation demonstrates osteotomy head 2nd metatarsal with intact screw and fusion 2nd toe with intact screw. Correlate with intraoperative findings/report.
[2021-10-22 09:37] VITALS: BP 170/80; PULSE 59
--- NOTE | 2021-10-22 10:29 | XRAY ---
15 seconds fluoroscopy time in surgery for osteotomy and Theodore procedure of the left foot.
--- NOTE | 2021-10-22 13:55 | OP ---
SURGERY DATE: 10/22/2021 SURGERY TIME: 703 PREOPERATIVE DIAGNOSIS: 1. PAINFUL INGROWING TOENAIL LEFT HALLUX. 2. ONYCHOMYCOSIS. 3. HAMMERTOE 2ND DIGIT. 4. PAIN LEFT FOOT. POSTOPERATIVE DIAGNOSIS: 1. PAINFUL INGROWING TOENAIL LEFT HALLUX. 2. ONYCHOMYCOSIS. 3. HAMMERTOE 2ND DIGIT. 4. PAIN LEFT FOOT. PROCEDURE: 1. Left hallux nail avulsion complete with matrixectomy. 2. Hammertoe correction with proximal interphalangeal joint arthrodesis 2nd digit left foot. 3. Theodore osteotomy 2nd metatarsal left foot. SURGEON: Gustavo Vega D.P.M. PHOTOGRAPHER LITHOGRAPHIC: None. ANESTHESIA: MAC plus an intraoperative local block. See injectables for details. HEMOSTASIS: An ankle tourniquet set to 250 mm Hg for 29 minutes. MATERIALS: 1. For the Theodore osteotomy, 2.0 X 14 mm small Tyber screw. 2. For the hammertoe, 2.5 X 30 mm variable compression screw, Berkley. 3. 3-0 Nylon and 4-0 Monocryl. INJECTABLES: 30 cc of 1:1 mixture of 1% Lidocaine plain and 0.5% Bupivicaine plain injected in a digit and hallux block type fashion to the left foot. DESCRIPTION OF PROCEDURE: The patient was brought in to the operating room and placed on the operating room table in the supine position. At this time, adequate monitored anesthesia care was administered and the patient was sedated. At this time, a well-padded ankle tourniquet was applied to the left ankle and the tourniquet was set to 250 mm Hg. At this time, the left foot was prepped and draped in the typical sterile fashion and the lower extremity was lowered onto the surgical field. At this time, an injection of 30 cc of 1:1 mixture of 1% Lidocaine plain and 0.5% Bupivicaine plain was injected in a hallux and a 2nd digital block type fashion. At this time, a spatula and grain packer were then utilized to lift the nail plate from the nailbed in order to release its attachments. At this time, a straight Mercy was utilized to lift the nailbed in totality out of the eponychium. At this time, the site was flushed and 3 applications of 30 seconds each of 89% phenol was applied to the nailbed while simultaneously using a curette to scrape the matrix. At this time, copious amounts of irrigation with 70% isopropyl alcohol was utilized to flush and neutralize the phenol. This site was then covered and attention was directed to the 2nd digit. There was an appreciated dorsiflex recontracture at the metatarsophalangeal joint and plantar flexor contracture at the proximal interphalangeal joint and preoperatively, the decision was made to perform Theodore in order to eliminate the dorsiflex recontracture. At this time, an incision was made over the dorsal aspect of the 2nd metatarsal where the extensor tendon was identified and resected in a Z tendon lengthening approach. This was reflected out of the surgical area and the 2nd metatarsal head was identified. At this time, sagittal saw was utilized to make a cut perpendicular to the longitudinal weight-bearing surface of the 2nd metatarsal. At this time, the capital fragment was posterior displaced and temporary fixation was applied. At this time, a 2.0 X 14 mm cannulated small Tyber screw was introduced from dorsal to plantar and checking under fluoroscopy in order to assess this was not bicortical. At this time, a rongeur was utilized to resect the dorsal cortex of the overhanging bone and attention was directed to the proximal interphalangeal joint. At this time, the incision was carried down and the capsular J stroke was performed utilizing a 15 blade. At this time, the joint was exposed and the proximal head was removed utilizing the sagittal saw as well as the base of the middle phalanx. At this time, a K-wire was retrograded from the middle phalanx to the distal tip of the toe and then retrograded down the longitudinal aspect of the proximal phalanx. This was checked under fluoroscopic guidance and deemed to be adequate. At this time, a 2.5 X 30 mm EPC screw from Berkley was introduced from the distal tip of the toe into the base of the proximal phalanx. This was checked under fluoroscopy and deemed to be adequate. At this time, the extensor tendon was repaired in adequate position with no tension. The subcutaneous skin edges were coapted utilizing 4-0 Nylon in a simple interrupted buried type fashion and the skin edges were coapted utilizing 3-0 Nylon in a horizontal mattress type fashion. Following this, the tourniquet was let down. Total tourniquet time was 29 minutes. Dressing consisting of betadine Adaptic, 4 X 4, Kerlex, and Tom was applied to the left lower extremity. The patient handled the anesthesia as well as the procedure without complication. Postoperative orders as indicated in the patient's discharge paperwork.
== END 2021-10-22 09:25 | disposition home or self-care (01) ==
LOC: SDC 06:03
PROVIDERS: ATTEND Podiatrist Foot & Ankle Surgery
DX: L60.0 Ingrowing nail (principal); B35.1 Tinea unguium; M20.42 Other hammer toe(s) (acquired), left foot; M79.672 Pain in left foot
CPT/HCPCS: 11730; 28285; 28308; 73620; 76000; C1713; 99100; J0690; J2250; J2704; J3010

== ENCOUNTER 2024-04-25 02:21 | Emergency (ER) | payer OTHER, MEDICARE ==
[2024-04-25 02:51] VITALS: TEMP 98.6
[2024-04-25 03:13] VITALS: RESP 18
[2024-04-25 03:30] LABS: Appearance Clear (Clear); Bacteria None Seen /HPF (None Seen); Bilirubin Negative (Negative); Blood Large (Negative); Epithelial Cells None Seen /HPF (None Seen); Glucose, Urine Negative (Negative); Hyaline Casts NONE SEEN /LPF (0-2); Ketones Negative (Negative); Leukocyte Esterase Trace (Negative); Nitrite Negative (Negative); Protein,Urine Dip 30 (Negative); RBC >100 /HPF (0-5)
--- NOTE | 2024-04-25 03:44 | ERPHSYRPT ---
- History of Present Illness Time Seen by Provider: 04/25/24 02:40 Source: patient Exam Limitations: no limitations Patient Subjective Stated Complaint: Unable to urinate since midnight. Bladder pain that feels like on fire. Triage Nursing Assessment: Patient presents with lower abdominal pain from bladder fullness due to not being able to urinate. States that he woke up around midnight with urgency to urinate and is unable to urinate at this time. States has a history of this in past and usually ambulation helps take care of it and that is not working tonight. Physician History: 79-year-old male presents to emergency department for evaluation of urinary retention. Patient states he has not been able to urinate in the past 3 to 4 hours. Patient feels his bladder is full. Patient has pain in the suprapubic region. No trauma no fever no nausea no vomiting. Symptoms are moderate in intensity. Palpation to the suprapubic region reproduces symptoms. No associated back pain. at bedside. They voiced no other complaints or concerns at this time. portions of this note were created with voice recognition technology. There may be grammatical, spelling, punctuation or sound alike errors Timing/Duration: today Severity: moderate Modifying Factors: Improves With: nothing Associated Symptoms: denies symptoms Allergies/Adverse Reactions: ketorolac [From Toradol] Adverse Reaction (Intermediate, Verified 10/19/21 13:29) unable to urinate morphine Adverse Reaction (Verified 10/19/21 13:29) Headache Home Medications: Gabapentin [Neurontin] 600 mg PO TID 05/11/16 [History] Omeprazole 20 MG [Prilosec 20 mg] 20 mg PO BID 05/11/16 [History] Simvastatin 40 mg [Zocor 40 mg] 40 mg PO HS 05/11/16 [History] Lisinopril/Hydrochlorothiazide [Lisinopril-Hctz 20-12.5 mg Tab] 1 tab PO BID 05/12/16 [History] Ascorbic Acid [Vitamin C] 1,000 mg PO DAILY 07/30/19 [History] Diclofenac Sodium/Misoprostol [Arthrotec 75 mg-200 Mcg Tab] 1 each PO BID 05/17/20 [History] Fluticasone Propionate [Flonase NASAL] 1 spray INTRANASAL DAILY 05/17/20 [History] Oxycodone HCl/Acetaminophen [Oxycodone-Acetaminophen 5-325] 1 each PO UD PRN 05/17/20 [History] Brinzolamide [Azopt] 1 drop OP HS 10/14/21 [History] Latanoprost/Pf [Latanoprost 0.005% Eye Drop] 1 drop OP BID 10/14/21 [History] Hx Tetanus, Diphtheria Vaccination/Date Given: Yes Hx Influenza Vaccination/Date Given: Yes Hx Pneumococcal Vaccination/Date Given: Yes Immunizations Up to Date: No Travel Risk - International Travel Have you traveled outside of the country in past 3 weeks: No - Emerging Infectious Disease Are you exhibiting symptoms associated with any current EIDs: No - Review of Systems Constitutional: No Symptoms, No Fever, No Chills Eyes: No Symptoms Ears, Nose, & Throat: No Symptoms Respiratory: No Symptoms, No Cough, No Dyspnea Cardiac: No Symptoms, No Chest Pain, No Edema, No Syncope Abdominal/Gastrointestinal: No Symptoms, No Abdominal Pain, No Nausea, No Vomiting, No Diarrhea Genitourinary Symptoms: No Symptoms, No Dysuria Musculoskeletal: No Symptoms, No Back Pain, No Neck Pain Skin: No Symptoms, No Rash Neurological: No Symptoms, No Dizziness, No Focal Weakness, No Sensory Changes Psychological: No Symptoms Endocrine: No Symptoms Hematologic/Lymphatic: No Symptoms Immunological/Allergic: No Symptoms All Other Systems: Reviewed and Negative - Past Medical History Pertinent Past Medical History: Yes Neurological History: No Pertinent History ENT History: Glaucoma Cardiac History: Hypertension Respiratory History: No Pertinent History Endocrine Medical History: No Pertinent History Musculoskeletal History: Arthritis GI Medical History: GERD, Gallbladder Disease History: No Pertinent History Psycho-Social History: No Pertinent History Male Reproductive Disorders: No Pertinent History Other Medical History: SX: 4 BACK SURGERIES (INCLUDING FUSIONS), 2 RIGHT SHOULDER SX, 1 LEFT SHOULDER, RIGHT KNEE, LEFT FOOT, LEFT HAMMER TOE SX, NECK SX - Past Surgical History Past Surgical History: Yes Neuro Surgical History: No Pertinent History Cardiac: No Pertinent History Respiratory: No Pertinent History Gastrointestinal: Cholecystectomy, Hernia Repair Genitourinary: No Pertinent History Musculoskeletal: Orthopedic Surgery Male Surgical History: No Pertinent History Other Surgical History: one neck surgery, 4 back and three shoulder and one left foot surgery. right knee surgery - Social History Smoking Status: Former smoker How long have you smoked: 34 Exposure to second hand smoke: No Drug Use: none Patient Lives Alone: No - Social Determinants of Health Will the patient participate in the screening: Yes Do you worry about a steady place to live?: No Do you have any problems with any of the following?: No known problems In the past 12 months,have you had to go without utilities?: No Transportation Issues: No Has anyone in your support network made you feel unsafe?: No Have you or anyone in your house had to go without enough: No - Nursing Vital Signs Nursing Vital Signs: Initial Vital Signs Temperature 98.6 F 04/25/24 02:22 Pulse Rate 76 04/25/24 02:22 Respiratory Rate 20 04/25/24 02:22 Blood Pressure 208/85 04/25/24 02:22 O2 Sat by Pulse Oximetry 97 04/25/24 02:22 Pain Scale Pain Intensity 10 - Physical Exam General Appearance: no apparent distress, alert Eye Exam: PERRL/EOMI, eyes nml inspection Neck Exam: normal inspection, full range of motion Respiratory Exam: normal breath sounds, lungs clear, airway intact, No respiratory distress Cardiovascular Exam: regular rate/rhythm, normal heart sounds, normal peripheral pulses Gastrointestinal/Abdomen Exam: soft, normal bowel sounds, tenderness (Suprapubic tenderness), No mass Back Exam: normal inspection, normal range of motion, No CVA tenderness, No vertebral tenderness Extremity Exam: normal inspection, normal range of motion, pelvis stable Neurologic Exam: alert, oriented x 3, cooperative, normal mood/affect, sensation nml, No motor deficits Skin Exam: normal color, warm, dry, No rash Lymphatic Exam: No adenopathy SpO2 Interpretation: normal SpO2: 92 O2 Delivery: Room Air - Course Nursing assessment & vital signs reviewed: Yes Ordered Tests: Active Orders 24 hr Category Date Time Status Arriola [Catheter-[place] Arriola] STAT Care 04/25/24 03:10 Active CULTURE,URINE Stat Lab 04/25/24 03:08 Received UA W/RFX UR CULTURE Stat Lab 04/25/24 03:09 Completed Lab/Rad Data: Laboratory Results 04/25/24 Range/Units 03:09 Urine Color Yellow (Yellow) Urine Appearance Clear (Clear) Urine pH 6.0 (4.6-8.0) Ur Specific [place] 1.010 (1.005-1.030) Urine Protein 30 (Negative) Urine Glucose (UA) Negative (Negative) mg/dL Urine Ketones Negative (Negative) Urine Blood Large A (Negative) Urine Nitrite Negative (Negative) Urine Bilirubin Negative (Negative) Urine Urobilinogen 1.0 A (0.2) mg/dL Ur Leukocyte Esterase Trace A (Negative) U Hyaline Cast (Auto) NONE SEEN (0-2) /LPF Urine Microscopic RBC >100 A (0-5) /HPF Urine Microscopic WBC 6-10 A (0-5) /HPF Ur Epithelial Cells None Seen (None Seen) /HPF Urine Bacteria None Seen (None Seen) /HPF Urine Culture Reflexed ORDERED SEPARATELY (NO) - Progress Progress: improved Progress Note: 79-year-old male presents to emergency department for evaluation of urinary retention. Physical exam reveals a full bladder. Arriola catheter placed. Approximately 700 cc urine expressed. UA reveals urinary tract infection. Prescription ciprofloxacin forwarded to patient's pharmacy. Patient reassessed. Pain resolved. Patient requesting to remove Arriola catheter. We intended to keep the Arriola catheter until he followed up with his urologist but he is requesting that we remove the catheter as he feels that he should be able to urinate normally from here on. Arriola catheter will be removed per his request. He agrees to follow-up with his urologist within 48 hours for reevaluation. Patient voices no other complaints at this time. Portions of this note were created with voice recognition technology. There may be grammatical, spelling, punctuation or sound alike errors Complexity of problem addressed is moderate acute complicated. No critical care time. Complex of data reviewed and analyzed is moderate. Test ordered chest reviewed results analyzed and correlated clinically with history and physical exam. Risk of complication and or risk of morbidity/mortality patient management is high. A prescription for ciprofloxacin forwarded to patient's pharmacy. Vital stable. Time spent to discharge patient is approximately 10 minutes. Plan of care established for shared decision making. No social determinants of health present to impede follow-up. Portions of this note were created with voice recognition technology. There may be grammatical, spelling, punctuation or sound alike errors 04/25/24 03:45 Counseled pt/family regarding: lab results, diagnosis, need for follow-up - Departure Departure Disposition: Home Clinical Impression: Urinary retention, Urinary tract infection Condition: Stable Critical Care Time: No Referrals: VENKATA SANCHEZ MD [Primary Care Provider] - Follow up/PCP as directed Additional Instructions: Discharge/Care Plan SYLVIA GALLOWAY was seen on 04/25/24 in the Emergency Room. The patient was counseled regarding Diagnosis,Lab results, Imaging studies, need for follow up and when to return to the Emergency Room. Prescriptions given: Discharge Note I have spoken with the patient and/or caregivers. I have explained the patient's condition, diagnosis and treatment plan based on the information available to me at this time. I have answered the patient's and/or caregiver's questions and addressed any concerns. The patient and/or caregivers have as good understanding of the patient's diagnosis, condition and treatment plan as can be expected at this point. The vital signs have been stable. The patient's condition is stable and appropriate for discharge from the emergency department. The patient will pursue further outpatient evaluation with the primary care physician or other designated or consulting physician as outlined in the discharge instructions. The patient and/or caregivers are agreeable to this plan of care and follow-up instructions have been explained in detail. The patient and/or caregivers have received these instruction. The patient/and or caregivers are aware that any significant change in condition or worsening of symptoms should prompt an immediate return to this or the closest emergency department or call 911. Prescriptions: Ciprofloxacin [Cipro 500 MG] 500 mg PO BID 7 Days #14 tablet
[2024-04-25] MEDS ORDERED: Cipro 500 MG ONE (03:56)
[2024-04-25] MEDS: Cipro 500 MG PO STA (03:57)
[2024-04-25 04:08] VITALS: BP 131/58; PULSE 67; O2SAT 95
== END 2024-04-25 04:11 | disposition home or self-care (01) ==
LOC: ED 02:21
DX: N39.0 Urinary tract infection, site not specified (principal); R33.9 Retention of urine, unspecified; R39.89 Other symptoms and signs involving the genitourinary system
CPT/HCPCS: 51702; 81001; 87086; 99283; A9270-GY

== ENCOUNTER 2024-05-03 05:09 | Emergency (ER) | payer OTHER, MEDICARE ==
[2024-05-03 05:30] VITALS: RESP 20; TEMP 98.1
[2024-05-03 05:42] LABS: Appearance Clear (Clear); Bacteria None Seen /HPF (None Seen); Bilirubin Negative (Negative); Blood Large (Negative); Epithelial Cells None Seen /HPF (None Seen); Glucose, Urine Negative (Negative); Hyaline Casts NONE SEEN /LPF (0-2); Ketones Negative (Negative); Leukocyte Esterase Trace (Negative); Nitrite Negative (Negative); Ph 6.5 (4.6-8.0); Protein,Urine Dip 30 (Negative); RBC 51-100 /HPF (0-5); Urobilinogen 0.2 mg/dL (0.2)
[2024-05-03 06:36] VITALS: BP 160/64; PULSE 78
[2024-05-03 06:37] VITALS: O2SAT 97
--- NOTE | 2024-05-03 06:37 | ERPHSYRPT ---
- History of Present Illness Time Seen by Provider: 05/03/24 06:34 Source: patient, family Exam Limitations: no limitations Patient Subjective Stated Complaint: pt states he has been unable to void since around midnight last night and is having pain 10/10 in his pelvic area and penis Triage Nursing Assessment: pt alert and oriented, answers questions approp. pt ambulates into room with steady gait noted. respirations nonlabored. skin warm and dry. Physician History: 79 years old male with history of hypertension, hyperlipidemia, BPH, urinary retention was seen in this ER couple of weeks ago with urinary retention and was placed on antibiotics presented to the ER with inability to void since midnight. Patient reports lower abdominal/suprapubic distention, pain with some pain in the penile area with inability to urinate. Patient denies any fever or chills. Has been taking Flomax. Allergies/Adverse Reactions: ketorolac [From Toradol] Adverse Reaction (Intermediate, Verified 10/19/21 13:29) unable to urinate morphine Adverse Reaction (Verified 10/19/21 13:29) Headache Home Medications: Gabapentin [Neurontin] 600 mg PO TID 05/11/16 [History] Omeprazole 20 MG [Prilosec 20 mg] 20 mg PO BID 05/11/16 [History] Simvastatin 40 mg [Zocor 40 mg] 40 mg PO HS 05/11/16 [History] Lisinopril/Hydrochlorothiazide [Lisinopril-Hctz 20-12.5 mg Tab] 1 tab PO BID 05/12/16 [History] Ascorbic Acid [Vitamin C] 1,000 mg PO DAILY 07/30/19 [History] Diclofenac Sodium/Misoprostol [Arthrotec 75 mg-200 Mcg Tab] 1 each PO BID 05/17/20 [History] Fluticasone Propionate [Flonase NASAL] 1 spray INTRANASAL DAILY 05/17/20 [History] Oxycodone HCl/Acetaminophen [Oxycodone-Acetaminophen 5-325] 1 each PO UD PRN 05/17/20 [History] Brinzolamide [Azopt] 1 drop OP HS 10/14/21 [History] Latanoprost/Pf [Latanoprost 0.005% Eye Drop] 1 drop OP BID 10/14/21 [History] Hx Tetanus, Diphtheria Vaccination/Date Given: Yes Hx Influenza Vaccination/Date Given: Yes Hx Pneumococcal Vaccination/Date Given: Yes Immunizations Up to Date: Yes Travel Risk - International Travel Have you traveled outside of the country in past 3 weeks: No - Emerging Infectious Disease Are you exhibiting symptoms associated with any current EIDs: No - Past Medical History Pertinent Past Medical History: Yes Neurological History: No Pertinent History ENT History: Glaucoma Cardiac History: Hypertension Respiratory History: No Pertinent History Endocrine Medical History: No Pertinent History Musculoskeletal History: Arthritis GI Medical History: GERD, Gallbladder Disease History: No Pertinent History Psycho-Social History: No Pertinent History Male Reproductive Disorders: No Pertinent History Other Medical History: SX: 4 BACK SURGERIES (INCLUDING FUSIONS), 2 RIGHT SHOULDER SX, 1 LEFT SHOULDER, RIGHT KNEE, LEFT FOOT, LEFT HAMMER TOE SX, NECK SX - Past Surgical History Past Surgical History: Yes Neuro Surgical History: No Pertinent History Cardiac: No Pertinent History Respiratory: No Pertinent History Gastrointestinal: Cholecystectomy, Hernia Repair Genitourinary: No Pertinent History Musculoskeletal: Orthopedic Surgery Male Surgical History: No Pertinent History Other Surgical History: one neck surgery, 4 back and three shoulder and one left foot surgery. right knee surgery - Social History Smoking Status: Former smoker How long have you smoked: 34 Exposure to second hand smoke: No Drug Use: none Patient Lives Alone: No - Social Determinants of Health Will the patient participate in the screening: Declined to provide Do you worry about a steady place to live?: No In the past 12 months,have you had to go without utilities?: No Transportation Issues: No Has anyone in your support network made you feel unsafe?: No Have you or anyone in your house had to go without enough: No - Review of Systems Constitutional: No Symptoms Ears, Nose, & Throat: No Symptoms Respiratory: No Symptoms Cardiac: No Symptoms Abdominal/Gastrointestinal: Abdominal Pain Genitourinary Symptoms: Urinary Retention Musculoskeletal: Arthralgias Skin: No Symptoms Neurological: No Symptoms Endocrine: No Symptoms - Nursing Vital Signs Nursing Vital Signs: Initial Vital Signs Temperature 98.1 F 05/03/24 05:15 Pulse Rate 71 05/03/24 05:15 Respiratory Rate 20 05/03/24 05:15 Blood Pressure 176/67 05/03/24 05:15 O2 Sat by Pulse Oximetry 97 05/03/24 05:15 Pain Scale Pain Intensity 3 - Physical Exam General Appearance: no apparent distress, alert Eye Exam: PERRL/EOMI Neck Exam: normal inspection, full range of motion Respiratory Exam: normal breath sounds, lungs clear Cardiovascular Exam: regular rate/rhythm, normal heart sounds Gastrointestinal/Abdomen Exam: soft, normal bowel sounds, tenderness (Mild suprapubic tenderness) Back Exam: normal range of motion Extremity Exam: normal inspection, normal range of motion Neurologic Exam: alert, oriented x 3, cooperative Skin Exam: normal color SpO2 Interpretation: normal SpO2: 97 O2 Delivery: Room Air Ordered Tests: Active Orders 24 hr Category Date Time Status CULTURE,URINE Stat Lab 05/03/24 05:40 Received UA W/RFX UR CULTURE Stat Lab 05/03/24 05:34 Completed Lab/Rad Data: Laboratory Results 05/03/24 Range/Units 05:34 Urine Color Yellow (Yellow) Urine Appearance Clear (Clear) Urine pH 6.5 (4.6-8.0) Ur Specific [place] 1.010 (1.005-1.030) Urine Protein 30 (Negative) Urine Glucose (UA) Negative (Negative) mg/dL Urine Ketones Negative (Negative) Urine Blood Large A (Negative) Urine Nitrite Negative (Negative) Urine Bilirubin Negative (Negative) Urine Urobilinogen 0.2 (0.2) mg/dL Ur Leukocyte Esterase Trace A (Negative) U Hyaline Cast (Auto) NONE SEEN (0-2) /LPF Urine Microscopic RBC 51-100 A (0-5) /HPF Urine Microscopic WBC 6-10 A (0-5) /HPF Ur Epithelial Cells None Seen (None Seen) /HPF Urine Bacteria None Seen (None Seen) /HPF Urine Culture Reflexed ORDERED SEPARATELY (NO) - Progress Progress: improved Progress Note: 05/03/24 06:35 79 years old is evaluated in the ER for urinary retention. Arriola catheter is placed in with almost 900 cc urine output. Patient pain-free immediately. UTI and another course of antibiotics. I recommended keeping Arriola in but patient does not want it. Arriola catheter is removed, recommended outpatient follow-up with primary care and urology as scheduled and continue with Flomax. Discussed signs symptoms of worsening needing return to ER which patient is understanding. Stable for discharge. Counseled pt/family regarding: lab results, diagnosis, need for follow-up Medical Desision Making - Independent Historian Additional History obtained from: Spouse - Diagnostic Testing Diagnostic test were ordered, analyzed, and reviewed by me: Yes - Departure Departure Disposition: Home Clinical Impression: Urinary retention Condition: Stable Critical Care Time: No Referrals: VENKATA SANCHEZ MD [Primary Care Provider] - Follow up with PCP 1 day Instructions: Urinary Retention (DC) Additional Instructions: Continue with Flomax. Follow-up with urology as scheduled. Return to ER for difficulty urination/retention or if develop fever chills/pain etc.
== END 2024-05-03 06:48 | disposition home or self-care (01) ==
LOC: ED 05:09
DX: R33.9 Retention of urine, unspecified (principal); R10.2 Pelvic and perineal pain; I10 Essential (primary) hypertension; Z79.899 Other long term (current) drug therapy
CPT/HCPCS: 51702; 81001; 87086; 99283

== ENCOUNTER 2024-05-27 04:30 | Emergency (ER) | payer OTHER, MEDICARE ==
--- NOTE | 2024-05-27 04:45 | ERPHSYRPT ---
- History of Present Illness Source: patient Exam Limitations: no limitations Allergies/Adverse Reactions: ketorolac [From Toradol] Adverse Reaction (Intermediate, Verified 05/27/24 04:48) unable to urinate morphine Adverse Reaction (Verified 05/27/24 04:48) Headache Home Medications: Gabapentin [Neurontin] 600 mg PO TID 05/11/16 [History] Omeprazole 20 MG [Prilosec 20 mg] 20 mg PO BID 05/11/16 [History] Simvastatin 40 mg [Zocor 40 mg] 40 mg PO HS 05/11/16 [History] Lisinopril/Hydrochlorothiazide [Lisinopril-Hctz 20-12.5 mg Tab] 1 tab PO BID 05/12/16 [History] Ascorbic Acid [Vitamin C] 1,000 mg PO DAILY 07/30/19 [History] Diclofenac Sodium/Misoprostol [Arthrotec 75 mg-200 Mcg Tab] 1 each PO BID 05/17/20 [History] Fluticasone Propionate [Flonase NASAL] 1 spray INTRANASAL DAILY 05/17/20 [History] Oxycodone HCl/Acetaminophen [Oxycodone-Acetaminophen 5-325] 1 each PO UD PRN 05/17/20 [History] Brinzolamide [Azopt] 1 drop OP HS 10/14/21 [History] Latanoprost/Pf [Latanoprost 0.005% Eye Drop] 1 drop OP BID 10/14/21 [History] Finasteride 5 mg [Proscar 5 MG] 5 mg PO DAILY 05/27/24 [History] Netarsudil Mesylat/Latanoprost [[place] 0.02%-0.005% Eye Drp] 2.5 ml OP DAILY 05/27/24 [History] Hx Tetanus, Diphtheria Vaccination/Date Given: Yes Hx Influenza Vaccination/Date Given: Yes Hx Pneumococcal Vaccination/Date Given: Yes Travel Risk - Emerging Infectious Disease Are you exhibiting symptoms associated with any current EIDs: No - Past Medical History Pertinent Past Medical History: Yes Neurological History: No Pertinent History ENT History: Glaucoma Cardiac History: Hypertension Respiratory History: No Pertinent History Endocrine Medical History: No Pertinent History Musculoskeletal History: Arthritis GI Medical History: GERD, Gallbladder Disease History: No Pertinent History Psycho-Social History: No Pertinent History Male Reproductive Disorders: No Pertinent History Other Medical History: SX: 4 BACK SURGERIES (INCLUDING FUSIONS), 2 RIGHT SHOULDER SX, 1 LEFT SHOULDER, RIGHT KNEE, LEFT FOOT, LEFT HAMMER TOE SX, NECK SX - Past Surgical History Past Surgical History: Yes Neuro Surgical History: No Pertinent History Cardiac: No Pertinent History Respiratory: No Pertinent History Gastrointestinal: Cholecystectomy, Hernia Repair Genitourinary: No Pertinent History Musculoskeletal: Orthopedic Surgery Male Surgical History: No Pertinent History Other Surgical History: one neck surgery, 4 back and three shoulder and one left foot surgery. right knee surgery - Social History Smoking Status: Former smoker How long have you smoked: 34 Exposure to second hand smoke: No Drug Use: none Patient Lives Alone: No - Social Determinants of Health Will the patient participate in the screening: Declined to provide Do you worry about a steady place to live?: No In the past 12 months,have you had to go without utilities?: No Transportation Issues: No Has anyone in your support network made you feel unsafe?: No Have you or anyone in your house had to go without enough: No - Review of Systems Constitutional: No Symptoms Eyes: No Symptoms Genitourinary Symptoms: Urinary Retention - Nursing Vital Signs Nursing Vital Signs: Initial Vital Signs Temperature 98.1 F 05/27/24 04:51 Pulse Rate 70 05/27/24 04:51 Respiratory Rate 19 05/27/24 04:51 Blood Pressure 183/85 05/27/24 04:51 O2 Sat by Pulse Oximetry 98 05/27/24 04:51 Pain Scale Pain Intensity 0 - Physical Exam General Appearance: no apparent distress Eye Exam: PERRL/EOMI - Course Nursing assessment & vital signs reviewed: Yes Ordered Tests: Active Orders 24 hr Category Date Time Status CULTURE,URINE Stat Lab 05/27/24 04:44 Ordered UA W/RFX UR CULTURE Stat Lab 05/27/24 05:14 Completed Lab/Rad Data: Laboratory Results 05/27/24 Range/Units 05:14 Urine Color Yellow (Yellow) Urine Appearance Clear (Clear) Urine pH 6.0 (4.6-8.0) Ur Specific [place] 1.010 (1.005-1.030) Urine Protein Trace A (Negative) Urine Glucose (UA) Negative (Negative) mg/dL Urine Ketones Negative (Negative) Urine Blood Moderate A (Negative) Urine Nitrite Negative (Negative) Urine Bilirubin Negative (Negative) Urine Urobilinogen 1.0 A (0.2) mg/dL Ur Leukocyte Esterase Trace A (Negative) U Hyaline Cast (Auto) NONE SEEN (0-2) /LPF Urine Microscopic RBC 51-100 A (0-5) /HPF Urine Microscopic WBC 6-10 A (0-5) /HPF Ur Epithelial Cells None Seen (None Seen) /HPF Urine Bacteria None Seen (None Seen) /HPF Urine Culture Reflexed ORDERED SEPARATELY (NO) - Progress Progress: improved Medical Desision Making - External Record(s) Reviewed Records reviewed as a part of evaluation & management: Inpatient, Discharge Summary - Social Determinants of Health Pt's dx & treatment plan are significantly limited by SDOH: limited education - Diagnostic Testing Diagnostic test were ordered, analyzed, and reviewed by me: Yes Radiological Interpretation: Interpreted by me - Risk of complications Minimal Risk: Minimal risk of morbidity - Departure Departure Disposition: Home Clinical Impression: Urinary retention Condition: Stable Critical Care Time: No Referrals: VENKATA SANCHEZ MD [Primary Care Provider] - Follow up/PCP as directed
[2024-05-27 05:13] VITALS: RESP 19; TEMP 98.1
[2024-05-27 05:29] LABS: Appearance Clear (Clear); Bacteria None Seen /HPF (None Seen); Bilirubin Negative (Negative); Blood Moderate (Negative); Epithelial Cells None Seen /HPF (None Seen); Glucose, Urine Negative (Negative); Hyaline Casts NONE SEEN /LPF (0-2); Ketones Negative (Negative); Leukocyte Esterase Trace (Negative); Nitrite Negative (Negative); Protein,Urine Dip Trace (Negative); RBC 51-100 /HPF (0-5)
[2024-05-27 07:05] VITALS: PULSE 72; O2SAT 95
[2024-05-27 07:09] VITALS: BP 138/72
== END 2024-05-27 07:14 | disposition home or self-care (01) ==
LOC: ED 04:30
DX: R33.9 Retention of urine, unspecified (principal)
CPT/HCPCS: 81001; 87086; 99283

== ENCOUNTER 2024-06-18 04:23 | Emergency (ER) | payer OTHER, MEDICARE ==
[2024-06-18 04:31] VITALS: TEMP 97.2
--- NOTE | 2024-06-18 04:39 | ERPHSYRPT ---
- History of Present Illness Time Seen by Provider: 06/18/24 04:37 Source: patient Exam Limitations: no limitations Physician History: 79-year-old male history of urinary retention presents to our ED for evaluation of a bout of urinary retention. Patient's last urine output was at 4:37 AM. No change in bowel function. No saddle anesthesia no lower extremity weakness. No trauma. No fever. No recent back procedure. Patient complains of suprapubic pain. Symptoms are mild to moderate in intensity. No specific worsening improving factors. Patient otherwise feels well. He voices no other complaints or concerns at this time. Portions of this note were created with voice recognition technology. There may be grammatical, spelling, punctuation or sound alike errors Timing/Duration: today Severity: moderate Modifying Factors: Improves With: nothing Associated Symptoms: denies symptoms Allergies/Adverse Reactions: ketorolac [From Toradol] Adverse Reaction (Intermediate, Verified 06/18/24 04:31) unable to urinate cyclobenzaprine [From Flexeril] Adverse Reaction (Verified 06/18/24 04:32) morphine Adverse Reaction (Verified 06/18/24 04:31) Headache Home Medications: Gabapentin [Neurontin] 600 mg PO TID 05/11/16 [History] Omeprazole 20 MG [Prilosec 20 mg] 20 mg PO BID 05/11/16 [History] Simvastatin 40 mg [Zocor 40 mg] 40 mg PO HS 05/11/16 [History] Lisinopril/Hydrochlorothiazide [Lisinopril-Hctz 20-12.5 mg Tab] 1 tab PO BID 05/12/16 [History] Ascorbic Acid [Vitamin C] 1,000 mg PO DAILY 07/30/19 [History] Diclofenac Sodium/Misoprostol [Arthrotec 75 mg-200 Mcg Tab] 1 each PO BID 05/17/20 [History] Fluticasone Propionate [Flonase NASAL] 1 spray INTRANASAL DAILY 05/17/20 [History] Oxycodone HCl/Acetaminophen [Oxycodone-Acetaminophen 5-325] 1 each PO UD PRN 05/17/20 [History] Brinzolamide [Azopt] 1 drop OP HS 10/14/21 [History] Latanoprost/Pf [Latanoprost 0.005% Eye Drop] 1 drop OP BID 10/14/21 [History] Finasteride 5 mg [Proscar 5 MG] 5 mg PO DAILY 05/27/24 [History] Netarsudil Mesylat/Latanoprost [Rocklatan 0.02%-0.005% Eye Drp] 2.5 ml OP DAILY 05/27/24 [History] Hx Tetanus, Diphtheria Vaccination/Date Given: Yes Hx Influenza Vaccination/Date Given: Yes Hx Pneumococcal Vaccination/Date Given: Yes Travel Risk - Emerging Infectious Disease Are you exhibiting symptoms associated with any current EIDs: No - Review of Systems Constitutional: No Symptoms, No Fever, No Chills Eyes: No Symptoms Ears, Nose, & Throat: No Symptoms Respiratory: No Symptoms, No Cough, No Dyspnea Cardiac: No Symptoms, No Chest Pain, No Edema, No Syncope Abdominal/Gastrointestinal: No Symptoms, No Abdominal Pain, No Nausea, No Vomiting, No Diarrhea Genitourinary Symptoms: No Symptoms, No Dysuria Musculoskeletal: No Symptoms, No Back Pain, No Neck Pain Skin: No Symptoms, No Rash Neurological: No Symptoms, No Dizziness, No Focal Weakness, No Sensory Changes Psychological: No Symptoms Endocrine: No Symptoms Hematologic/Lymphatic: No Symptoms Immunological/Allergic: No Symptoms All Other Systems: Reviewed and Negative - Past Medical History Pertinent Past Medical History: Yes Neurological History: No Pertinent History ENT History: Glaucoma Cardiac History: Hypertension Respiratory History: No Pertinent History Endocrine Medical History: No Pertinent History Musculoskeletal History: Arthritis GI Medical History: GERD, Gallbladder Disease History: No Pertinent History Psycho-Social History: No Pertinent History Male Reproductive Disorders: No Pertinent History Other Medical History: SX: 4 BACK SURGERIES (INCLUDING FUSIONS), 2 RIGHT SHOULDER SX, 1 LEFT SHOULDER, RIGHT KNEE, LEFT FOOT, LEFT HAMMER TOE SX, NECK SX - Past Surgical History Past Surgical History: Yes Neuro Surgical History: No Pertinent History Cardiac: No Pertinent History Respiratory: No Pertinent History Gastrointestinal: Cholecystectomy, Hernia Repair Genitourinary: No Pertinent History Musculoskeletal: Orthopedic Surgery Male Surgical History: No Pertinent History Other Surgical History: one neck surgery, 4 back and three shoulder and one left foot surgery. right knee surgery - Social History Smoking Status: Former smoker How long have you smoked: 34 Exposure to second hand smoke: No Drug Use: none Patient Lives Alone: No - Social Determinants of Health Will the patient participate in the screening: Declined to provide Do you worry about a steady place to live?: No In the past 12 months,have you had to go without utilities?: No Transportation Issues: No Has anyone in your support network made you feel unsafe?: No Have you or anyone in your house had to go without enough: No - Nursing Vital Signs Nursing Vital Signs: Initial Vital Signs Temperature 97.2 F 06/18/24 04:28 Pulse Rate 62 06/18/24 04:28 Respiratory Rate 20 06/18/24 04:28 Blood Pressure 181/74 06/18/24 04:28 O2 Sat by Pulse Oximetry 98 06/18/24 04:28 Pain Scale Pain Intensity 10 - Physical Exam General Appearance: no apparent distress, alert Eye Exam: PERRL/EOMI, eyes nml inspection Ears, Nose, Throat Exam: normal ENT inspection, TMs normal, pharynx normal, moist mucous membranes Neck Exam: normal inspection, non-tender, supple, full range of motion Respiratory Exam: normal breath sounds, lungs clear, airway intact, No respiratory distress Cardiovascular Exam: regular rate/rhythm, normal heart sounds, normal peripheral pulses Gastrointestinal/Abdomen Exam: soft, normal bowel sounds, other (Suprapubic fullness and tenderness palpation), No tenderness, No mass Back Exam: normal inspection, normal range of motion, No CVA tenderness, No vertebral tenderness Extremity Exam: normal inspection, normal range of motion, pelvis stable Neurologic Exam: alert, oriented x 3, cooperative, normal mood/affect, sensation nml, No motor deficits Skin Exam: normal color, warm, dry, No rash Lymphatic Exam: No adenopathy SpO2 Interpretation: normal SpO2: 98 O2 Delivery: Room Air - Course Nursing assessment & vital signs reviewed: Yes Ordered Tests: Active Orders 24 hr Category Date Time Status Straight Cath STAT Care 06/18/24 04:39 Active CULTURE,URINE Stat Lab 06/18/24 05:00 Received UA W/RFX UR CULTURE Stat Lab 06/18/24 05:00 Completed Lab/Rad Data: Laboratory Results 06/18/24 Range/Units 05:00 Urine Color Yellow (Yellow) Urine Appearance Clear (Clear) Urine pH 6.5 (4.6-8.0) Ur Specific [place] 1.015 (1.005-1.030) Urine Protein 30 (Negative) Urine Glucose (UA) Negative (Negative) mg/dL Urine Ketones Negative (Negative) Urine Blood Moderate A (Negative) Urine Nitrite Negative (Negative) Urine Bilirubin Negative (Negative) Urine Urobilinogen 1.0 A (0.2) mg/dL Ur Leukocyte Esterase Trace A (Negative) U Hyaline Cast (Auto) NONE SEEN (0-2) /LPF Urine Microscopic RBC 51-100 A (0-5) /HPF Urine Microscopic WBC 11-20 A (0-5) /HPF Ur Epithelial Cells None Seen (None Seen) /HPF Urine Bacteria None Seen (None Seen) /HPF Urine Culture Reflexed YES (NO) - Progress Progress: improved Progress Note: 79-year-old male presents to our ED for evaluation of urinary retention and dysuria. Physical exam reveals tenderness at the suprapubic region. Patient has a history of recurrent urinary retention. Patient declines Arriola catheter. He agrees to straight cath. Patient was straight cathed symptoms resolved. Urinalysis reveals urinary tract infection. Patient received a dose of ciprofloxacin in our ED. A prescription for the same for the patient's pharmacy. Patient updated on the findings. No indication for further workup at this time will discharge home. Patient agrees to follow-up with his primary care doctor within 48 hours for reevaluation. Portions of this note were created with voice recognition technology. There may be grammatical, spelling, punctuation or sound alike errors Complexity of problem addressed is moderate acute complicated. No critical care time. Complex of data reviewed and analyzed is moderate. Test ordered chest reviewed results analyzed and correlated clinically with history and physical exam. Risk of complication and or risk of morbidity/mortality of patient management is low. Vital stable. Time spent to discharge patient approximately 20 minutes. Plan of care established for shared decision making. No social determinants of health present to impede follow-up. Portions of this note were created with voice recognition technology. There may be grammatical, spelling, punctuation or sound alike errors 06/18/24 05:25 Counseled pt/family regarding: lab results, diagnosis, need for follow-up - Departure Departure Disposition: Home Clinical Impression: Urinary retention, UTI (urinary tract infection) Condition: Stable Critical Care Time: No Referrals: VENKATA SANCHEZ MD [Primary Care Provider] - Follow up/PCP as directed Additional Instructions: Discharge/Care Plan SYLVIA GALLOWAY was seen on 06/18/24 in the Emergency Room. The patient was counseled regarding Diagnosis,Lab results, Imaging studies, need for follow up and when to return to the Emergency Room. Prescriptions given: Discharge Note I have spoken with the patient and/or caregivers. I have explained the patient's condition, diagnosis and treatment plan based on the information available to me at this time. I have answered the patient's and/or caregiver's questions and addressed any concerns. The patient and/or caregivers have as good understanding of the patient's diagnosis, condition and treatment plan as can be expected at this point. The vital signs have been stable. The patient's condition is stable and appropriate for discharge from the emergency department. The patient will pursue further outpatient evaluation with the primary care physician or other designated or consulting physician as outlined in the discharge instructions. The patient and/or caregivers are agreeable to this plan of care and follow-up instructions have been explained in detail. The patient and/or caregivers have received these instruction. The patient/and or caregivers are aware that any significant change in condition or worsening of symptoms should prompt an immediate return to this or the closest emergency department or call 911. Prescriptions: Ciprofloxacin [Cipro 500 MG] 500 mg PO BID 7 Days #14 tablet
[2024-06-18 05:10] LABS: Appearance Clear (Clear); Bacteria None Seen /HPF (None Seen); Bilirubin Negative (Negative); Blood Moderate (Negative); Epithelial Cells None Seen /HPF (None Seen); Glucose, Urine Negative (Negative); Hyaline Casts NONE SEEN /LPF (0-2); Ketones Negative (Negative); Leukocyte Esterase Trace (Negative); Nitrite Negative (Negative); Ph 6.5 (4.6-8.0); Protein,Urine Dip 30 (Negative); RBC 51-100 /HPF (0-5); Specific Gravity 1.015 (1.005-1.030)
[2024-06-18] MEDS ORDERED: Cipro 500 MG ONE (05:20)
[2024-06-18] MEDS: Cipro 500 MG PO STA (05:22)
[2024-06-18 05:32] VITALS: BP 113/60; PULSE 54; RESP 18; O2SAT 95
== END 2024-06-18 05:35 | disposition home or self-care (01) ==
LOC: ED 04:23
DX: N39.0 Urinary tract infection, site not specified (principal); R33.9 Retention of urine, unspecified; R10.2 Pelvic and perineal pain; I10 Essential (primary) hypertension; Z79.899 Other long term (current) drug therapy
CPT/HCPCS: 51702; 81001; 87086; 99283; A9270-GY

== ENCOUNTER 2024-07-01 04:01 | Emergency (ER) | payer OTHER, MEDICARE ==
--- NOTE | 2024-07-01 04:29 | ERPHSYRPT ---
- History of Present Illness Time Seen by Provider: 07/01/24 04:13 Source: patient, family Exam Limitations: no limitations Physician History: pt has urinary retention recurring and periodically requires a cath. He states he has had chronic back problems which they think may play a role but no knew symptoms today. In the past he has been found to have a UTI and after the cath and starting antibiotics it works fine and does not require a catheter to stay in so he pre fers to avoid that. He goes weeks just fine without it. He has had a workup and been told all is well just mild prostate enlargement. we did in and out cath - got 650 cc, and he feels fine without symptoms now. Abd soft nontender without peritoneal signs, masses, or distension. family called in ahead of his visit as independent source for Hx. Discussed risk/benefit with pt Tx with cath and testing with UA, and he wishes to proceed. results discussed with pt and family available. Timing/Duration: today Activites at Onset: none Quality: burning, fullness, pressure Onset Location: suprapubic Pain Radiation: none Severity of Pain-Max: moderate Severity of Pain-Current: none Modifying Factors: Improves With: other (doing cath relieved) Associated Symptoms: lower back pain Prior abdominal problems: none Sexual intercourse history: non-contributory Allergies/Adverse Reactions: ketorolac [From Toradol] Adverse Reaction (Intermediate, Verified 07/01/24 04:40) unable to urinate cyclobenzaprine [From Flexeril] Adverse Reaction (Verified 07/01/24 04:40) morphine Adverse Reaction (Verified 07/01/24 04:40) Headache Home Medications: Gabapentin [Neurontin] 600 mg PO TID 05/11/16 [History] Omeprazole 20 MG [Prilosec 20 mg] 20 mg PO BID 05/11/16 [History] Simvastatin 40 mg [Zocor 40 mg] 40 mg PO HS 05/11/16 [History] Lisinopril/Hydrochlorothiazide [Lisinopril-Hctz 20-12.5 mg Tab] 1 tab PO BID 05/12/16 [History] Ascorbic Acid [Vitamin C] 1,000 mg PO DAILY 07/30/19 [History] Diclofenac Sodium/Misoprostol [Arthrotec 75 mg-200 Mcg Tab] 1 each PO BID 05/17/20 [History] Fluticasone Propionate [Flonase NASAL] 1 spray INTRANASAL DAILY 05/17/20 [History] Oxycodone HCl/Acetaminophen [Oxycodone-Acetaminophen 5-325] 1 each PO UD PRN 05/17/20 [History] Brinzolamide [Azopt] 1 drop OP HS 10/14/21 [History] Latanoprost/Pf [Latanoprost 0.005% Eye Drop] 1 drop OP BID 10/14/21 [History] Finasteride 5 mg [Proscar 5 MG] 5 mg PO DAILY 05/27/24 [History] Netarsudil Mesylat/Latanoprost [Rocklatan 0.02%-0.005% Eye Drp] 2.5 ml OP DAILY 05/27/24 [History] Hx Tetanus, Diphtheria Vaccination/Date Given: Yes Hx Influenza Vaccination/Date Given: Yes Hx Pneumococcal Vaccination/Date Given: Yes Travel Risk - Emerging Infectious Disease Are you exhibiting symptoms associated with any current EIDs: No - Past Medical History Pertinent Past Medical History: Yes Neurological History: No Pertinent History ENT History: Glaucoma Cardiac History: Hypertension Respiratory History: No Pertinent History Endocrine Medical History: No Pertinent History Musculoskeletal History: Arthritis GI Medical History: GERD, Gallbladder Disease History: No Pertinent History Psycho-Social History: No Pertinent History Male Reproductive Disorders: No Pertinent History Other Medical History: SX: 4 BACK SURGERIES (INCLUDING FUSIONS), 2 RIGHT SHOULDER SX, 1 LEFT SHOULDER, RIGHT KNEE, LEFT FOOT, LEFT HAMMER TOE SX, NECK SX - Past Surgical History Past Surgical History: Yes Neuro Surgical History: No Pertinent History Cardiac: No Pertinent History Respiratory: No Pertinent History Gastrointestinal: Cholecystectomy, Hernia Repair Genitourinary: No Pertinent History Musculoskeletal: Orthopedic Surgery Male Surgical History: No Pertinent History Other Surgical History: one neck surgery, 4 back and three shoulder and one left foot surgery. right knee surgery - Social History Smoking Status: Former smoker How long have you smoked: 34 Exposure to second hand smoke: No Drug Use: none Patient Lives Alone: No - Social Determinants of Health Will the patient participate in the screening: Declined to provide Do you worry about a steady place to live?: No In the past 12 months,have you had to go without utilities?: No Transportation Issues: No Has anyone in your support network made you feel unsafe?: No Have you or anyone in your house had to go without enough: No - Review of Systems Constitutional: No Fever, No Chills Eyes: No Symptoms Ears, Nose, & Throat: No Symptoms Respiratory: No Cough, No Dyspnea Cardiac: No Chest Pain, No Edema, No Syncope Abdominal/Gastrointestinal: No Abdominal Pain, No Nausea, No Vomiting, No Diarrhea Genitourinary Symptoms: Urinary Retention, No Dysuria Musculoskeletal: Back Pain (chronic ), No Neck Pain Skin: No Rash Neurological: No Dizziness, No Focal Weakness, No Sensory Changes Psychological: No Symptoms Endocrine: No Symptoms Hematologic/Lymphatic: No Symptoms Immunological/Allergic: No Symptoms All Other Systems: Reviewed and Negative - Nursing Vital Signs Nursing Vital Signs: Initial Vital Signs Temperature 98.1 F 07/01/24 04:17 Pulse Rate 60 07/01/24 04:17 Respiratory Rate 18 07/01/24 04:17 Blood Pressure 156/76 07/01/24 04:17 O2 Sat by Pulse Oximetry 95 07/01/24 04:17 Pain Scale Pain Intensity 0 - Physical Exam General Appearance: no apparent distress, alert Eye Exam: PERRL/EOMI Ears, Nose, Throat Exam: pharynx normal, moist mucous membranes Neck Exam: normal inspection, supple Respiratory Exam: normal breath sounds, lungs clear Cardiovascular Exam: regular rate/rhythm, No edema Gastrointestinal/Abdomen Exam: soft, No tenderness Back Exam: normal inspection, No CVA tenderness Extremity Exam: normal inspection, normal range of motion, No pedal edema Neurologic Exam: alert, oriented x 3, cooperative, sensation nml, No motor deficits Skin Exam: normal color, warm, dry, No rash SpO2 Interpretation: normal SpO2: 95 O2 Delivery: Room Air - Course Nursing assessment & vital signs reviewed: Yes Ordered Tests: Active Orders 24 hr Category Date Time Status Cath,Straight [Straight Cath] STAT Care 07/01/24 04:51 Active CULTURE,URINE Stat Lab 07/01/24 04:43 Received UA W/RFX UR CULTURE Stat Lab 07/01/24 04:43 Completed Lab/Rad Data: Laboratory Results 07/01/24 Range/Units 04:43 Urine Color Yellow (Yellow) Urine Appearance Clear (Clear) Urine pH 6.0 (4.6-8.0) Ur Specific [place] 1.010 (1.005-1.030) Urine Protein 30 (Negative) Urine Glucose (UA) Negative (Negative) mg/dL Urine Ketones Negative (Negative) Urine Blood Large A (Negative) Urine Nitrite Negative (Negative) Urine Bilirubin Negative (Negative) Urine Urobilinogen 0.2 (0.2) mg/dL Ur Leukocyte Esterase Trace A (Negative) U Hyaline Cast (Auto) NONE SEEN (0-2) /LPF Urine Microscopic RBC 21-50 A (0-5) /HPF Urine Microscopic WBC 3-5 (0-5) /HPF Ur Epithelial Cells None Seen (None Seen) /HPF Urine Bacteria None Seen (None Seen) /HPF Urine Culture Reflexed YES (NO) - Progress Progress: improved, re-examined Progress Note: 07/01/24 05:09 discussed risks/benefits of going on ab for what may only be very early uti and pt wishes to proceed. Counseled pt/family regarding: lab results, diagnosis, need for follow-up Medical Desision Making - Independent Historian Additional History obtained from: Family - Discussion of managment Reviewed:: Test results, Need for additional workup Agreed on:: Treatment plan, need for follow-up - Diagnostic Testing Diagnostic test were ordered, analyzed, and reviewed by me: Yes - Risk of complications The pt has a mod risk of morbidity or mortality based on: Need for prescription drug management - Departure Departure Disposition: Home Clinical Impression: Urinary retention, minimal findings of UTI, Hematuria Condition: Good Critical Care Time: No Referrals: VENKATA SANCHEZ MD [Primary Care Provider] - Follow up/PCP as directed Instructions: Urinary Retention (DC), Urinary tract infection in adults - ED discharge instructions, Blood in Urine (Hematuria), Adult ED Additional Instructions: Followup with your Urologist as planned for definitive workup and treatment. We have provided antibiotics since there may be an early stage of Urinary infection beginning as we discussed. You still have the blood in the urine which needs working up and caitlin scoping you are planning is one part of that, Return meantime if abdominal pain fever, vomiting, furhter urinary retention or any other concerns. Followup with your Dr also for your blood pressure. Prescriptions: Levofloxacin [Levofloxacin 500 MG Tablet] 500 mg PO QAM #10 tablet
[2024-07-01 04:37] VITALS: RESP 18; TEMP 98.1
[2024-07-01 04:51] LABS: Appearance Clear (Clear); Bacteria None Seen /HPF (None Seen); Bilirubin Negative (Negative); Blood Large (Negative); Epithelial Cells None Seen /HPF (None Seen); Glucose, Urine Negative (Negative); Hyaline Casts NONE SEEN /LPF (0-2); Ketones Negative (Negative); Leukocyte Esterase Trace (Negative); Nitrite Negative (Negative); Protein,Urine Dip 30 (Negative); RBC 21-50 /HPF (0-5); Urobilinogen 0.2 mg/dL (0.2)
[2024-07-01] MEDS ORDERED: Levofloxacin 500 MG Tablet ONE (05:24)
[2024-07-01] MEDS: Levofloxacin 250MG Tablet PO ONE (05:25)
[2024-07-01] MEDS ORDERED: Levofloxacin 250MG Tablet ONE (05:25)
[2024-07-01 05:37] VITALS: BP 148/73; PULSE 62; O2SAT 97
== END 2024-07-01 05:31 | disposition home or self-care (01) ==
LOC: ED 04:01
DX: R33.9 Retention of urine, unspecified (principal); N39.0 Urinary tract infection, site not specified; R31.9 Hematuria, unspecified; I10 Essential (primary) hypertension; Z79.899 Other long term (current) drug therapy
CPT/HCPCS: 51702; 81001; 87086; 99283; A9270-GY

== ENCOUNTER 2024-08-11 00:54 | Emergency (ER) | payer OTHER, MEDICARE ==
[2024-08-11 01:06] VITALS: TEMP 99
--- NOTE | 2024-08-11 01:06 | ERPHSYRPT ---
- History of Present Illness Source: patient Exam Limitations: no limitations Physician History: Was seen by admitting is on for peds here 9 noon family practice doc ER on oh I have you reduce further comfort and his symptoms like I will point may need a studies different things on THC toxicity and some of the half-life said like 54 hours and staying like this with a low growth rectum and to have a low to go on log and then also to go to we can admit him if you want his mother to me patient with urinary tract obstruction. HeRecently had a Bladder biopsy. Sometimes he gets obstructed. Usually they put a straight cath in him and he gets better. He is learning how to self cath. He has not had any other complaints.He has no fever chills nausea vomiting or other systemic symptoms. His suprapubic tenderness and pressure. He has not urinated for many hours Timing/Duration: today Quality: aching, fullness, pressure Allergies/Adverse Reactions: ketorolac [From Toradol] Adverse Reaction (Intermediate, Verified 07/01/24 04:40) unable to urinate cyclobenzaprine [From Flexeril] Adverse Reaction (Verified 07/01/24 04:40) morphine Adverse Reaction (Verified 07/01/24 04:40) Headache Home Medications: Gabapentin [Neurontin] 600 mg PO TID 05/11/16 [History] Omeprazole 20 MG [Prilosec 20 mg] 20 mg PO BID 05/11/16 [History] Simvastatin 40 mg [Zocor 40 mg] 40 mg PO HS 05/11/16 [History] Lisinopril/Hydrochlorothiazide [Lisinopril-Hctz 20-12.5 mg Tab] 1 tab PO BID 05/12/16 [History] Ascorbic Acid [Vitamin C] 1,000 mg PO DAILY 07/30/19 [History] Diclofenac Sodium/Misoprostol [Arthrotec 75 mg-200 Mcg Tab] 1 each PO BID 05/17/20 [History] Fluticasone Propionate [Flonase NASAL] 1 spray INTRANASAL DAILY 05/17/20 [History] Oxycodone HCl/Acetaminophen [Oxycodone-Acetaminophen 5-325] 1 each PO UD PRN 05/17/20 [History] Brinzolamide [Azopt] 1 drop OP HS 10/14/21 [History] Latanoprost/Pf [Latanoprost 0.005% Eye Drop] 1 drop OP BID 10/14/21 [History] Finasteride 5 mg [Proscar 5 MG] 5 mg PO DAILY 05/27/24 [History] Netarsudil Mesylat/Latanoprost [Rocklatan 0.02%-0.005% Eye Drp] 2.5 ml OP DAILY 05/27/24 [History] Hx Tetanus, Diphtheria Vaccination/Date Given: Yes Hx Influenza Vaccination/Date Given: Yes Hx Pneumococcal Vaccination/Date Given: Yes Travel Risk - Emerging Infectious Disease Are you exhibiting symptoms associated with any current EIDs: No - Past Medical History Pertinent Past Medical History: Yes Neurological History: No Pertinent History ENT History: Glaucoma Cardiac History: Hypertension Respiratory History: No Pertinent History Endocrine Medical History: No Pertinent History Musculoskeletal History: Arthritis GI Medical History: GERD, Gallbladder Disease History: No Pertinent History Psycho-Social History: No Pertinent History Male Reproductive Disorders: No Pertinent History Other Medical History: SX: 4 BACK SURGERIES (INCLUDING FUSIONS), 2 RIGHT SHOULDER SX, 1 LEFT SHOULDER, RIGHT KNEE, LEFT FOOT, LEFT HAMMER TOE SX, NECK SX - Past Surgical History Past Surgical History: Yes Neuro Surgical History: No Pertinent History Cardiac: No Pertinent History Respiratory: No Pertinent History Gastrointestinal: Cholecystectomy, Hernia Repair Genitourinary: No Pertinent History Musculoskeletal: Orthopedic Surgery Male Surgical History: No Pertinent History Other Surgical History: one neck surgery, 4 back and three shoulder and one left foot surgery. right knee surgery - Social History Smoking Status: Former smoker How long have you smoked: 34 Exposure to second hand smoke: No Drug Use: none Patient Lives Alone: No - Social Determinants of Health Will the patient participate in the screening: Declined to provide Do you worry about a steady place to live?: No In the past 12 months,have you had to go without utilities?: No Transportation Issues: No Has anyone in your support network made you feel unsafe?: No Have you or anyone in your house had to go w/o enough food: No - Review of Systems Constitutional: No Symptoms All Other Systems: Reviewed and Negative - Physical Exam General Appearance: no apparent distress Gastrointestinal/Abdomen Exam: soft, normal bowel sounds, other (Suprapubic tenderness and pressure and some mild distention) Back Exam: normal inspection Neurologic Exam: alert, oriented x 3 Skin Exam: normal color - Course Nursing assessment & vital signs reviewed: Yes - Progress Progress: improved Progress Note: A straight cath was done. Good pressure relief was obtained.A large amount of urine was removed. Patient was stable discharged home in stable condition. He is to return if symptoms worsen 08/11/24 01:05 - Departure Departure Disposition: Home Clinical Impression: Urinary retention Condition: Stable Critical Care Time: No Referrals: VENKATA SANCHEZ MD [Primary Care Provider] - Follow up/PCP as directed Instructions: Urinary Retention (DC)
[2024-08-11 01:21] VITALS: BP 180/87; PULSE 74; RESP 18; O2SAT 96
== END 2024-08-11 01:43 | disposition home or self-care (01) ==
LOC: ED 00:54
DX: R33.9 Retention of urine, unspecified (principal); I10 Essential (primary) hypertension; Z79.899 Other long term (current) drug therapy
CPT/HCPCS: 99283; P9612; 99282

== ENCOUNTER 2024-08-18 06:11 | Emergency (ER) | payer OTHER, MEDICARE ==
[2024-08-18 06:26] VITALS: PULSE 57; TEMP 98.3
--- NOTE | 2024-08-18 06:38 | ERPHSYRPT ---
- History of Present Illness Source: patient Exam Limitations: no limitations Patient Subjective Stated Complaint: pt reports ongoing issues with urinary retention since . pt reports he last urinated at 0330 today and is now unable to pass any urine. pt states recent testing of his bladder showed 3 cancerous lesions that he will begin treatment for soon. pt also states recent testing revealed a possible pinched nerve that could be contributing to this issue. Triage Nursing Assessment: pt is aox3, pupils perrl, afebrile, resps easy and non labored, cap refill < 3 seconds, radial pulses strong and equal, pt abd soft non tender, bladder is distended, pt skin pink warm dry. Physician History: Patient has urinary retention. He is had this multiple times. It started after his fourth back surgery. He has been to urologist and does not have prostatic enlargement. He does not have any other neurological symptoms from his back issues of note. Does not have any fever chills nausea vomiting or dysuria. He is had this happen multiple times. He usually gets an In-N-Out catheter and that gets him relief initially and then he begins urinating at home. Timing/Duration: today, yesterday Activites at Onset: none Associated Symptoms: denies symptoms Allergies/Adverse Reactions: ketorolac [From Toradol] Adverse Reaction (Intermediate, Verified 08/18/24 06:26) unable to urinate cyclobenzaprine [From Flexeril] Adverse Reaction (Verified 08/18/24 06:26) morphine Adverse Reaction (Verified 08/18/24 06:26) Headache Home Medications: Gabapentin [Neurontin] 600 mg PO TID 05/11/16 [History] Omeprazole 20 MG [Prilosec 20 mg] 20 mg PO BID 05/11/16 [History] Simvastatin 40 mg [Zocor 40 mg] 40 mg PO HS 05/11/16 [History] Lisinopril/Hydrochlorothiazide [Lisinopril-Hctz 20-12.5 mg Tab] 1 tab PO BID 05/12/16 [History] Ascorbic Acid [Vitamin C] 1,000 mg PO DAILY 07/30/19 [History] Diclofenac Sodium/Misoprostol [Arthrotec 75 mg-200 Mcg Tab] 1 each PO BID 05/17/20 [History] Fluticasone Propionate [Flonase NASAL] 1 spray INTRANASAL DAILY 05/17/20 [History] Oxycodone HCl/Acetaminophen [Oxycodone-Acetaminophen 5-325] 1 each PO UD PRN 05/17/20 [History] Brinzolamide [Azopt] 1 drop OP HS 10/14/21 [History] Latanoprost/Pf [Latanoprost 0.005% Eye Drop] 1 drop OP BID 10/14/21 [History] Finasteride 5 mg [Proscar 5 MG] 5 mg PO DAILY 05/27/24 [History] Netarsudil Mesylat/Latanoprost [Rocklatan 0.02%-0.005% Eye Drp] 2.5 ml OP DAILY 05/27/24 [History] Hx Tetanus, Diphtheria Vaccination/Date Given: Yes Hx Influenza Vaccination/Date Given: Yes Hx Pneumococcal Vaccination/Date Given: Yes Immunizations Up to Date: No Travel Risk - International Travel Have you traveled outside of the country in past 3 weeks: No - Emerging Infectious Disease Are you exhibiting symptoms associated with any current EIDs: No - Past Medical History Pertinent Past Medical History: Yes Neurological History: No Pertinent History ENT History: Glaucoma Cardiac History: Hypertension Respiratory History: No Pertinent History Endocrine Medical History: No Pertinent History Musculoskeletal History: Arthritis GI Medical History: GERD, Gallbladder Disease History: No Pertinent History Psycho-Social History: No Pertinent History Male Reproductive Disorders: No Pertinent History Other Medical History: SX: 4 BACK SURGERIES (INCLUDING FUSIONS), 2 RIGHT SHOULDER SX, 1 LEFT SHOULDER, RIGHT KNEE, LEFT FOOT, LEFT HAMMER TOE SX, NECK SX - Past Surgical History Past Surgical History: Yes Neuro Surgical History: No Pertinent History Cardiac: No Pertinent History Respiratory: No Pertinent History Gastrointestinal: Cholecystectomy, Hernia Repair Genitourinary: No Pertinent History Musculoskeletal: Orthopedic Surgery Male Surgical History: No Pertinent History Other Surgical History: one neck surgery, 4 back and three shoulder and one left foot surgery. right knee surgery - Social History Smoking Status: Former smoker How long have you smoked: 34 Exposure to second hand smoke: No Drug Use: none - Social Determinants of Health Will the patient participate in the screening: Declined to provide - Review of Systems Constitutional: No Symptoms, Night Sweats Genitourinary Symptoms: Urinary Retention Musculoskeletal: No Symptoms Skin: No Symptoms Neurological: No Symptoms All Other Systems: Reviewed and Negative - Nursing Vital Signs Nursing Vital Signs: Initial Vital Signs Temperature 98.3 F 08/18/24 06:15 Pulse Rate 57 L 08/18/24 06:15 Respiratory Rate 20 08/18/24 06:15 Blood Pressure 194/68 08/18/24 06:15 O2 Sat by Pulse Oximetry 98 08/18/24 06:15 Pain Scale Pain Intensity 10 - Physical Exam General Appearance: no apparent distress Male Genital Exam: normal genitalia Back Exam: normal inspection Skin Exam: normal color SpO2: 98 - Course Nursing assessment & vital signs reviewed: Yes Ordered Tests: Active Orders 24 hr Category Date Time Status CULTURE,URINE Stat Lab 08/18/24 06:29 Received UA W/RFX UR CULTURE Stat Lab 08/18/24 06:29 Received - Progress Progress: improved Progress Note: Patient got a In-N-Out catheter about 700 cc were removed. We are waiting on a UA. 08/18/24 06:37 - Departure Departure Disposition: Home Clinical Impression: Urinary retention Condition: Stable Critical Care Time: No Referrals: VENKATA SANCHEZ MD [Primary Care Provider] - Follow up/PCP as directed Instructions: Urinary Retention (DC)
[2024-08-18 07:09] VITALS: BP 143/61; RESP 18; O2SAT 97
[2024-08-18 07:28] LABS: Appearance Clear (Clear); Bilirubin Negative (Negative); Blood Moderate (Negative); Glucose, Urine Negative (Negative); Ketones Negative (Negative); Leukocyte Esterase Trace (Negative); Nitrite Negative (Negative); Protein,Urine Dip Trace (Negative); Specific Gravity <=1.005 (1.005-1.030); Urobilinogen 0.2 mg/dL (0.2)
[2024-08-18 07:29] LABS: Bacteria None Seen /HPF (None Seen); Epithelial Cells None Seen /HPF (None Seen); Hyaline Casts NONE SEEN /LPF (0-2); RBC 21-50 /HPF (0-5)
== END 2024-08-18 07:10 | disposition home or self-care (01) ==
LOC: ED 06:11
DX: R33.9 Retention of urine, unspecified (principal); I10 Essential (primary) hypertension; Z79.899 Other long term (current) drug therapy
CPT/HCPCS: 81001; 87086; 99282; 99283

== ENCOUNTER 2024-09-25 20:00 | Emergency (ER) | payer OTHER, MEDICARE ==
[2024-09-25 20:43] VITALS: TEMP 98.4; O2SAT 94
[2024-09-25 21:05] VITALS: BP 111/50; PULSE 52; RESP 18
[2024-09-25 21:25] LABS: Appearance Cloudy (Clear); Bacteria None Seen /HPF (None Seen); Bilirubin Negative (Negative); Blood Large (Negative); Epithelial Cells None Seen /HPF (None Seen); Glucose, Urine Negative (Negative); Ketones Negative (Negative); Leukocyte Esterase Large (Negative); Nitrite Negative (Negative); Ph 6.5 (4.6-8.0); Protein,Urine Dip 100 (Negative); RBC >100 /HPF (0-5); WBC >100 /HPF (0-5)
--- NOTE | 2024-09-25 21:32 | ERPHSYRPT ---
- History of Present Illness Time Seen by Provider: 09/25/24 21:23 Source: patient Exam Limitations: no limitations Patient Subjective Stated Complaint: "I had a treatment today for my bladder cancer around 0900 and I was able to get any urine out when I've tried to self c ath myself at home". Triage Nursing Assessment: PT PRESENTS TO ER WITH COMPLAINTS OF URINARY RETENTION THAT STARTED THIS AFTERNOON. ATTEMPTED TO SELF CATH HIMSELF AT HOME TODAY WITHOUT SUCCESS. PT RATES PAIN IN BLADDER 10/10. 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 PT IS ALERT AND ORIENTED X 3. SKIN IS PINK,WARM,DRY. RESPIRATIONS ARE EASY. DENIES ANY OTHER COMPLAINTS. CIPRO FINISHED 3 DAYS WORTH AND THEN SWITCHED TO MACROBID X 2 WEEKS AND FINISHED THAT 2 WEEKS AGO. Physician History: Patient is a 79-year-old male history of bladder cancer receiving weekly treatments every Monday with bladder infusion presents to our ED for evaluation of urinary retention. Patient normally catheter self at home. Patient unable to cath himself successfully today. Patient presents to our ED for further evaluation. Patient feels his bladder is full. Patient rates his bladder pain 10 out of 10. No trauma no fever. Symptoms are mild to moderate in intensity. Patient's pain usually resolves once he is catheterized. Patient advised that he just completed a 1 week course of Macrobid. Patient had a UTI. Management was initiated with Cipro. Cultures resulted and he was switched over to Macrobid. Patient has been off of antibiotics x 2 weeks. at bedside. They voiced no other complaints or concerns at this time. Portions of this note were created with voice recognition technology. There may be grammatical, spelling, punctuation or sound alike errors Timing/Duration: today Severity: moderate Modifying Factors: Improves With: nothing Associated Symptoms: denies symptoms Allergies/Adverse Reactions: ketorolac [From Toradol] Adverse Reaction (Intermediate, Verified 09/25/24 21:04) unable to urinate cyclobenzaprine [From Flexeril] Adverse Reaction (Verified 09/25/24 21:04) morphine Adverse Reaction (Verified 09/25/24 21:04) Headache Home Medications: Gabapentin [Neurontin] 600 mg PO TID 05/11/16 [History] Omeprazole 20 MG [Prilosec 20 mg] 20 mg PO BID 05/11/16 [History] Simvastatin 40 mg [Zocor 40 mg] 40 mg PO HS 05/11/16 [History] Lisinopril/Hydrochlorothiazide [Lisinopril-Hctz 20-12.5 mg Tab] 1 tab PO BID 05/12/16 [History] Ascorbic Acid [Vitamin C] 1,000 mg PO DAILY 07/30/19 [History] Diclofenac Sodium/Misoprostol [Arthrotec 75 mg-200 Mcg Tab] 1 each PO BID 05/17/20 [History] Fluticasone Propionate [Flonase NASAL] 1 spray INTRANASAL DAILY 05/17/20 [History] Oxycodone HCl/Acetaminophen [Oxycodone-Acetaminophen 5-325] 1 each PO UD PRN 05/17/20 [History] Brinzolamide [Azopt] 1 drop OP HS 10/14/21 [History] Latanoprost/Pf [Latanoprost 0.005% Eye Drop] 1 drop OP BID 10/14/21 [History] Finasteride 5 mg [Proscar 5 MG] 5 mg PO DAILY 05/27/24 [History] Netarsudil Mesylat/Latanoprost [Rocklatan 0.02%-0.005% Eye Drp] 2.5 ml OP DAILY 05/27/24 [History] Hx Tetanus, Diphtheria Vaccination/Date Given: Yes Hx Influenza Vaccination/Date Given: Yes Hx Pneumococcal Vaccination/Date Given: Yes Travel Risk - International Travel Have you traveled outside of the country in past 3 weeks: No - Emerging Infectious Disease Are you exhibiting symptoms associated with any current EIDs: No - Review of Systems Constitutional: No Fever, No Chills Eyes: No Symptoms Ears, Nose, & Throat: No Symptoms Respiratory: No Symptoms, No Cough, No Dyspnea Cardiac: No Symptoms, No Chest Pain, No Edema, No Syncope Abdominal/Gastrointestinal: No Symptoms, No Abdominal Pain, No Nausea, No Vomiting, No Diarrhea Genitourinary Symptoms: No Symptoms, No Dysuria Musculoskeletal: No Symptoms, No Back Pain, No Neck Pain Skin: No Symptoms, No Rash Neurological: No Symptoms, No Dizziness, No Focal Weakness, No Sensory Changes Psychological: No Symptoms Endocrine: No Symptoms Hematologic/Lymphatic: No Symptoms Immunological/Allergic: No Symptoms All Other Systems: Reviewed and Negative - Past Medical History Pertinent Past Medical History: Yes Neurological History: No Pertinent History ENT History: Glaucoma Cardiac History: Hypertension Respiratory History: No Pertinent History Endocrine Medical History: No Pertinent History Musculoskeletal History: Arthritis GI Medical History: GERD, Gallbladder Disease History: No Pertinent History Psycho-Social History: No Pertinent History Male Reproductive Disorders: No Pertinent History Other Medical History: SX: 4 BACK SURGERIES (INCLUDING FUSIONS), 2 RIGHT SHOULDER SX, 1 LEFT SHOULDER, RIGHT KNEE, LEFT FOOT, LEFT HAMMER TOE SX, NECK SX - Past Surgical History Past Surgical History: Yes Neuro Surgical History: No Pertinent History Cardiac: No Pertinent History Respiratory: No Pertinent History Gastrointestinal: Cholecystectomy, Hernia Repair Genitourinary: No Pertinent History Musculoskeletal: Orthopedic Surgery Male Surgical History: No Pertinent History Other Surgical History: one neck surgery, 4 back and three shoulder and one left foot surgery. right knee surgery - Social History Smoking Status: Former smoker How long have you smoked: 34 Exposure to second hand smoke: No Drug Use: none - Social Determinants of Health Will the patient participate in the screening: Yes Do you worry about a steady place to live?: No Do you have any problems with any of the following?: No known problems In the past 12 months,have you had to go without utilities?: No Transportation Issues: No Has anyone in your support network made you feel unsafe?: No Have you or anyone in your house had to go w/o enough food: No - Nursing Vital Signs Nursing Vital Signs: Initial Vital Signs Pulse Rate 50 L 09/25/24 20:30 Respiratory Rate 16 09/25/24 20:30 Blood Pressure 154/67 09/25/24 20:30 O2 Sat by Pulse Oximetry 94 L 09/25/24 20:30 Pain Scale Pain Intensity 0 - Physical Exam General Appearance: no apparent distress, alert Eye Exam: PERRL/EOMI, eyes nml inspection Ears, Nose, Throat Exam: normal ENT inspection, moist mucous membranes Neck Exam: normal inspection, full range of motion Respiratory Exam: normal breath sounds, airway intact, No respiratory distress Cardiovascular Exam: regular rate/rhythm, normal heart sounds, normal peripheral pulses Gastrointestinal/Abdomen Exam: soft, normal bowel sounds, No tenderness, No mass Back Exam: normal inspection, normal range of motion, No CVA tenderness, No vertebral tenderness Extremity Exam: normal inspection, normal range of motion, pelvis stable Neurologic Exam: alert, oriented x 3, cooperative, normal mood/affect, sensation nml, No motor deficits Skin Exam: normal color, warm, dry, No rash Lymphatic Exam: No adenopathy SpO2 Interpretation: normal SpO2: 94 - Course Nursing assessment & vital signs reviewed: Yes Ordered Tests: Active Orders 24 hr Category Date Time Status Bladder Irrigation STAT Care 09/25/24 21:14 Active Straight Cath STAT Care 09/25/24 21:14 Active CULTURE,URINE Stat Lab 09/25/24 20:30 Received UA W/RFX UR CULTURE Stat Lab 09/25/24 20:30 Completed Medication Summary Discontinued Medications Generic Name Dose Route Start Last Admin Trade Name Freq PRN Reason Stop Dose Admin Nitrofurantoin Macrocrystals 100 mg 09/25/24 21:35 Nitrofurantoin Macro 100 Mg Capsule PO 09/25/24 21:36 STAT ONE Lab/Rad Data: Laboratory Results 09/25/24 Range/Units 20:30 Urine Color Yellow (Yellow) Urine Appearance Cloudy A (Clear) Urine pH 6.5 (4.6-8.0) Ur Specific [place] 1.010 (1.005-1.030) Urine Protein 100 A (Negative) Urine Glucose (UA) Negative (Negative) mg/dL Urine Ketones Negative (Negative) Urine Blood Large A (Negative) Urine Nitrite Negative (Negative) Urine Bilirubin Negative (Negative) Urine Urobilinogen 1.0 A (0.2) mg/dL Ur Leukocyte Esterase Large A (Negative) U Hyaline Cast (Auto) 3-5 A (0-2) /LPF Urine Microscopic RBC >100 A (0-5) /HPF Urine Microscopic WBC >100 A (0-5) /HPF Ur Epithelial Cells None Seen (None Seen) /HPF Urine Bacteria None Seen (None Seen) /HPF Urine Culture Reflexed ORDERED SEPARATELY (NO) - Progress Progress: improved Progress Note: 79-year-old male history of bladder cancer currently undergoing chemotherapy presents to our ED for evaluation of urinary retention. Patient was catheterized in our ED. Approximately 500 cc of urine obtained. Bladder scanner reveals a postvoid residual of 0. The urine was a little bloody. Bladder was then irrigated. UA sent. Urine reveals a pyuria/hematuria positive leukocyte esterase. Patient was last on Macrobid for his UTI. Patient received an oral dose of Macrobid in our ED. A prescription for the same was forwarded to patient's pharmacy. Patient will follow-up with his urologist. Patient is currently comfortable. He declined pain medication. Patient does not want to maintain the indwelling Arriola catheter. Patient states he is ready for discharge. He voices no other complaints or concerns at this time. Portions of this note were created with voice recognition technology. There may be grammatical, spelling, punctuation or sound alike errors Complexity of problem addressed is moderate acute complicated. No critical care time. Complex of data reviewed and analyzed as moderate. Test ordered test reviewed results analyzed and correlated clinically with history and physical exam. Risk of complication and or risk of morbidity/mortality of patient management is moderate. Patient received an oral dose of Macrobid in our ED. A prescription for the same was forwarded to patient's pharmacy. Vital stable. Time spent to discharge patient is approximately 10 minutes. Plan of care established for shared decision making. No social determinants of health present to impede follow-up. Portions of this note were created with voice recognition technology. There may be grammatical, spelling, punctuation or sound alike errors 09/25/24 21:37 Counseled pt/family regarding: lab results, diagnosis, need for follow-up - Departure Departure Disposition: Home Clinical Impression: Urinary retention, UTI (urinary tract infection) Condition: Stable Critical Care Time: No Referrals: VENKATA SANCHEZ MD [Primary Care Provider] - Follow up/PCP as directed Instructions: Urinary Retention (DC) Additional Instructions: Discharge/Care Plan SYLVIA GALLOWAY was seen on 09/25/24 in the Emergency Room. The patient was counseled regarding Diagnosis,Lab results, Imaging studies, need for follow up and when to return to the Emergency Room. Prescriptions given: Discharge Note I have spoken with the patient and/or caregivers. I have explained the patient's condition, diagnosis and treatment plan based on the information available to me at this time. I have answered the patient's and/or caregiver's questions and addressed any concerns. The patient and/or caregivers have as good understanding of the patient's diagnosis, condition and treatment plan as can be expected at this point. The vital signs have been stable. The patient's condition is stable and appropriate for discharge from the emergency department. The patient will pursue further outpatient evaluation with the primary care physician or other designated or consulting physician as outlined in the discharge instructions. The patient and/or caregivers are agreeable to this plan of care and follow-up instructions have been explained in detail. The patient and/or caregivers have received these instruction. The patient/and or caregivers are aware that any significant change in condition or worsening of symptoms should prompt an immediate return to this or the closest emergency department or call 911. Prescriptions: Nitrofurantoin Macro 100 mg [Macrobid 100MG Capsule] 100 mg PO BID 7 Days #14 cap
[2024-09-25] MEDS ORDERED: Macrobid 100MG Capsule ONE (21:37)
[2024-09-25] MEDS: Macrobid 100MG Capsule PO ONE (21:37)
== END 2024-09-25 21:40 | disposition home or self-care (01) ==
LOC: ED 20:00
DX: N39.0 Urinary tract infection, site not specified (principal); R33.9 Retention of urine, unspecified; I10 Essential (primary) hypertension; Z79.899 Other long term (current) drug therapy
CPT/HCPCS: 51700; 51702; 81001; 87086; 99283; 99284; A9270-GY